=== PATIENT | female | born 1940 | race Caucasian/White ===

== ENCOUNTER 2022-09-12 07:15 | Inpatient (IN) | payer MEDICARE, OTHER ==
[~2022-09-12] VITALS: Ht 160 cm; Wt 72.5 kg
[2022-09-12] MEDS ORDERED: NS IV 1000 ML 1,000 ML IV STA (07:37)
[2022-09-12] MEDS ORDERED: ONDANSETRON 4 MG/2 ML (SDV) Z0FRAN IVP STA (07:37)
--- NOTE | 2022-09-12 07:43 | ED Cough/URI ---
General Stated Complaint: SOB Source: patient Exam Limitations: no limitations History of Present Illness Date Seen by Provider: Sep 12, 2022 Time Seen by Provider: 07:18 Initial Comments 81 yo female presenting with complaints of "feeling like shit". She reports cough with shortness of breath, nausea and vomiting, increased flatulence, hot and cold flashes, and nasal congestion/drainage since yesterday. She denies any known ill contacts. She lives in the [facility] here in [place]. She is a smoker but has not been able to smoke since yesterday due to shortness of breath. She denies chest pain or abdominal pain, but says her abdomen is sore when she is vomiting. She has a history of hypertension and takes 2 blood pressure medicines for that and she has had bilateral mastectomy in the remote past. She follows with [facility] clinic and sees MOIZ Juan. She reports that she has had Covid Vaccines but did not get a flu shot this season, but did get one in 2020. Timing/Duration: yesterday, getting worse Severity/Quality: dry cough Prior Episodes/Possible Cause: no prior episodes Modifying Factors: Worse With Activity, Worse With Coughing Associated Symptoms: cough, fever/chills (subjective), headache, nasal congestion, nasal drainage, shortness of breath Allergies and Home Medications Allergies Coded Allergies: caffeine (Verified Allergy, Unknown, 09/12/22) ergotamine (Verified Allergy, Unknown, 09/12/22) Patient Home Medication List Home Medication List Reviewed: Yes Review of Systems Review of Systems Constitutional: see HPI EENTM: see HPI Respiratory: see HPI Cardiovascular: see HPI Gastrointestinal: see HPI Genitourinary: No dysuria, No frequency Musculoskeletal: no symptoms reported Skin: No rash Psychiatric/Neurological: See HPI Hematologic/Lymphatic: No Symptoms Reported Past Aphjiii-Bnhtck-Knlzgs Hx Patient Social History Tobacco Use?: Yes Tobacco type used: Cigarettes Smoking Status: Current Everyday Smoker Use of E-Cig and/or Vaping dev: No Substance use?: No Past Medical History Surgery/Hospitalization HX: Bilateral mastectomy, Hypertension, High cholesterol, Depression, Tobacco abuse, Osteoarthritis Surgeries: Yes Breast (bilateral mastectomy) Cardiac: Yes High Cholesterol, Hypertension Neurological: No Genitourinary: No Gastrointestinal: No Musculoskeletal: Yes Arthritis Endocrine: No HEENT: No Cancer: Yes Breast Did You Recieve Any Treatments: Yes What Type of Treatment Did You: Surgical Intervention Psychosocial: Yes Depression Physical Exam Vital Signs - First Documented 09/12/22 09/12/22 07:22 07:32 Temp 36.8 Pulse 75 Resp 18 B/P (MAP) 165/67 (99) Pulse Ox 90 O2 Delivery Room Air O2 Flow Rate 2.00 FiO2 95 Capillary Refill : Height: '" Weight: lbs. oz. 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, alert, oriented x 3 Skin: normal color, warm/dry Focused Exam Lactate Level 09/12/22 07:35: Lactic Acid Level 0.95 Lactic Acid Level Laboratory Tests Test 09/12/22 07:35 Lactic Acid Level 0.95 MMOL/L (0.50-2.00) Progress/Results/Core Measures Suspected Sepsis SIRS Temperature: Pulse: Respiratory Rate: Laboratory Tests 09/12/22 07:35: White Blood Count 5.9 Blood Pressure / Mean: 09/12/22 07:35: Lactic Acid Level 0.95 Laboratory Tests 09/12/22 07:35: Creatinine 0.57L, Platelet Count 160, Total Bilirubin 0.3 Results/Orders Lab Results Laboratory Tests Test 09/12/22 07:34 09/12/22 07:35 09/12/22 09:17 Range/Units Influenza Type A (RT-PCR) Not Detected Not Detecte Influenza Type B (RT-PCR) Not Detected Not Detecte SARS-CoV-2 RNA (RT-PCR) Detected H Not Detecte White Blood Count 5.9 4.3-11.0 10^3/uL Red Blood Count 3.98 3.80-5.11 10^6/uL Hemoglobin 12.3 11.5-16.0 g/dL Hematocrit 36 35-52 % Mean Corpuscular Volume 92 80-99 fL Mean Corpuscular Hemoglobin 31 25-34 pg Mean Corpuscular Hemoglobin Concent 34 32-36 g/dL Red Cell Distribution Width 13.6 10.0-14.5 % Platelet Count 160 130-400 10^3/uL Mean Platelet Volume 10.3 9.0-12.2 fL Immature Granulocyte % (Auto) 0 % Neutrophils (%) (Auto) 72 42-75 % Lymphocytes (%) (Auto) 11 L 12-44 % Monocytes (%) (Auto) 13 H 0-12 % Eosinophils (%) (Auto) 3 0-10 % Basophils (%) (Auto) 1 0-10 % Neutrophils # (Auto) 4.2 1.8-7.8 10^3/uL Lymphocytes # (Auto) 0.7 L 1.0-4.0 10^3/uL Monocytes # (Auto) 0.8 0.0-1.0 10^3/uL Eosinophils # (Auto) 0.2 0.0-0.3 10^3/uL Basophils # (Auto) 0.1 0.0-0.1 10^3/uL Immature Granulocyte # (Auto) 0.0 0.0-0.1 10^3/uL Sodium Level 134 L 135-145 MMOL/L Potassium Level 4.0 3.6-5.0 MMOL/L Chloride Level 100 98-107 MMOL/L Carbon Dioxide Level 21 21-32 MMOL/L Anion Gap 13 5-14 MMOL/L Blood Urea Nitrogen 9 7-18 MG/DL Creatinine 0.57 L 0.60-1.30 MG/DL Estimat Glomerular Filtration Rate 92 BUN/Creatinine Ratio 16 Glucose Level 119 H 70-105 MG/DL Lactic Acid Level 0.95 0.50-2.00 MMOL/L Calcium Level 8.8 8.5-10.1 MG/DL Corrected Calcium 9.0 8.5-10.1 MG/DL Magnesium Level 2.0 1.6-2.4 MG/DL Total Bilirubin 0.3 0.1-1.0 MG/DL Aspartate Amino Transf (AST/SGOT) 18 5-34 U/L Alanine Aminotransferase (ALT/SGPT) 9 0-55 U/L Alkaline Phosphatase 80 40-136 U/L C-Reactive Protein 2.83 H <0.50 MG/DL Total Protein 7.5 6.4-8.2 GM/DL Albumin 3.8 3.2-4.5 GM/DL My Orders Orders - OLI BARTON MD Cbc With Automated Diff (09/12/22 07:34) Comprehensive Metabolic Panel (09/12/22 07:34) Blood Culture (09/12/22 07:34) Chest 1 View Ap/Pa Only (09/12/22 07:34) Albuterol/Ipra Inhalation Soln (Duoneb I (09/12/22 07:45) Magnesium (09/12/22 07:34) Ekg Tracing (09/12/22 07:34) O2 (09/12/22 07:34) Ed Iv/Invasive Line Start (09/12/22 07:34) Sputum Culture (09/12/22 07:34) Monitor-Rhythm Ecg Trace Only (09/12/22 07:34) Crp Fs (09/12/22 07:34) Lactic Acid Analyzer (09/12/22 07:34) Svn Small Volume Nebulizer (09/12/22 07:34) Covid 19 Inhouse Test (09/12/22 07:36) Influenza A And B By Pcr (09/12/22 07:36) Isolation Central Supply Req (09/12/22 07:36) Ua Culture If Indicated (09/12/22 07:36) Ns Iv 1000 Ml (Sodium Chloride 0.9%) (09/12/22 07:37) Ondansetron Injection (Zofran Injectio (09/12/22 07:37) Ketorolac Injection (Toradol Injection) (09/12/22 07:55) Albuterol Inhaler (Albuterol) (09/12/22 08:15) Nursing Communication (Order) (09/12/22 08:08) Dexamethasone Injection (Decadron Inje (09/12/22 08:08) Ceftriaxone 1 Gm Pre-Mix (Rocephin 1 Gm (09/12/22 08:08) Azithromycin Tablet (Zithromax Tablet) (09/12/22 08:08) Ed Admission (Communication) (09/12/22 08:34) Medications Given in ED Current Medications Medications Dose Ordered Sig/Francine Route Start Time Stop Time Status Last Admin Dose Admin Albuterol Sulfate 4 PUFFS RTQ4HR PRN IH 09/12/22 08:15 09/12/22 08:25 8.5 GM Albuterol/ Ipratropium 3 ml ONCE ONCE INH 09/12/22 07:45 09/12/22 07:46 DC 09/12/22 08:03 3 ML Vital Signs/I&O 09/12/22 09/12/22 09/12/22 07:22 07:32 07:41 Temp 36.8 36.8 Pulse 75 75 Resp 18 18 B/P (MAP) 165/67 (99) 165/67 Pulse Ox 90 95 O2 Delivery Room Air Nasal Cannula Nasal Cannula O2 Flow Rate 2.00 FiO2 95 Capillary Refill : Progress Note #1: Progress Note Potential diagnosis of pneumonia, COVID, influenza, heart failure, myocardial infarction, viral syndrome, COPD exacerbation. Obtain peripheral IV access and send labs for complete blood count, comprehensive metabolic profile, blood cultures, lactic acid, CRP, nasal swab for COVID and influenza. Urinalysis to look at her hydration as well as looking for infection. Electrocardiogram to evaluate her heart rate and rhythm and looking for signs of ischemia or arrhythmia. Sputum culture if she coughs up any phlegm or mucus. Single view chest x-ray to evaluate her lungs looking for pneumonia or infiltrate, mass, effusion, cardiomegaly. Administer normal saline 1 L IV fluid bolus for hydration, Zofran 4 mg IV for nausea and vomiting, DuoNeb breathing treatment for cough and shortness of breath. Placed on supplemental oxygen to help keep her sats above 91%. Initially her oxygen saturations were fluctuating between 89 to 92% on room air. Progress Note #2: Time: 07:56 Progress Note Patient complained to nurses that she has a headache and would like something for that but states she can not take Tylenol because she has a hiatal hernia. On my personal interpretation of her 1 view chest xray she has right lower lobe infiltrate. Placed patient on cardiac telemetry and on my initial interpretation she has sinus rhythm with rate in the 60s. My interpretation of her electrocardiogram is that she has a sinus rhythm with first degree AV block and a rate of 70 beats per minute without ST elevation or acute ischemic changes. Will order Toradol 15 mg IV for her complaint of headache. [id number] I reviewed radiologist report that said she had bibasilar opacities felt to be atelectasis rather than infection. On my interpretation with her clinical presentation and physical exam I feel that she has more of a pneumonia in the RLL. Will plan to proceed with antibiotics for possible bacterial infection. 0807 Lab called to inform us that she is positive for Covid. 0825 complete blood count shows her white blood cell count is not elevated at 5.9. Her comprehensive metabolic profile did not show acute significant abnormality on her electrolytes to account for her shortness of breath. Her lactic acid was not elevated at 0.95 to help go against sepsis. Her CRP was elevated which would go along with inflammatory process with her COVID infection. Will check with the hospitalist covering for [facility] about admission to the hospital since she did have hypoxia down to 86% on room air after she received a DuoNeb breathing treatment. With her having hypoxia in addition to COVID and not eating and drinking well she will benefit from admit and supplemental oxygen. Progress Note #3: Time: 08:28 Progress Note D/w Dr. Patel, educational therapist hospitalist for [facility] inpatient service. Advised her of the patient's presentation and vital signs with her dropping to 86% on room air. Blood count was ok and her lactic acid was not elevated for sepsis. Chest xray with concern for pneumonia along with her Covid infection. She agreed to admit for her COVID infection with hypoxia and possible pneumonia. Will admit to m ed/surg floor and she will place queued orders for the patient. ECG Initial ECG Impression Date: Sep 12, 2022 Initial ECG Impression Time: 07:52 Initial ECG Rate: 70 Initial ECG Rhythm: Normal Sinus Initial ECG Impression: 1st Degree AV Block Initial ECG Comparisson: No Previous ECG Available Comment On my personal interpretation of her electrocardiogram she shows a normal sinus rhythm with first-degree AV block and a heart rate of 70 bpm. MN interval [address] elevation. QT interval 425 ms with a QTc interval 446 ms. There is no prior tracing available for comparison. Diagnostic Imaging Diagonstic Imaging: Xray Plain Films/CT/US/NM/MRI: chest Comments NAME: CHUY UREÑA [facility] REC#: [id number] PT STATUS: REG ER : 1940 PHYSICIAN: OLI BARTON MD ADMIT DATE: 09/12/22/ER FS Draft Date of Exam:09/12/22 CHEST 1 VIEW AP/PA ONLY INDICATION: Cough or shortness of breath. There is flattening of the diaphragms and symmetrical hyperexpansion of the lungs bilaterally. Heart size is upper limits and there is borderline central vascular congestion but no convincing evidence for pulmonary edema. Very mild bibasilar patchy opacities are favored to reflect partial atelectasis. IMPRESSION: Air trapping likely basilar atelectasis with upper limits heart size and venous caliber but no overt failure pattern or pleural pathology. Dictated on workstation # [id number] Dict: 09/12/22 0758 Trans: 09/12/22 0800 [facility] [id number] Interpreted by: JAQUELINE BOYKIN Electronically signed by: Reviewed: Reviewed by Me (I reviewed radiologist report at 0804 ) Departure Communication (Admissions) Time/Spoke to Admitting Phy: 08:28 D/w Dr. Patel, educational therapist hospitalist for [facility] inpatient service. Advised her of the patient's presentation and vital signs with her dropping to 86% on room air. Blood count was ok and her lactic acid was not elevated for sepsis. Chest xray with concern for pneumonia along with her Covid infection. She agreed to admit for her COVID infection with hypoxia and possible pneumonia. Will admit to med/surg floor and she will place queued orders for the patient. Impression Primary Impression: COVID-19 virus infection Additional Impressions: Shortness of breath Upper respiratory infection with cough and congestion Pneumonia of right lower lobe due to infectious organism Acute viral syndrome Disposition: 30 STILL A PATIENT Condition: Stable Admissions Decision to Admit Reason: Admit from ER (General) Decision to Admit/Date: Sep 12, 2022 Time/Decision to Admit Time: 08:28 Departure-Patient Inst. Referrals: BASIA JUAN APRN (PCP) Primary Care Physician [facility] (Family) Primary Care Physician OLI BARTON MD Sep 12, 2022 07:43
[2022-09-12] MEDS ORDERED: RT-ALBUTEROL/IPRATROPIUM 3 ML (DUONEB) VIAL INH ONE (07:45)
[2022-09-12] MEDS ORDERED: KETOROLAC 15 MG/ML VIAL IVP STA (07:55)
[2022-09-12 07:57] LABS: BASOPHILS # (AUTO) 0.1 10^3/uL (0.0-0.1); BASOPHILS % (AUTO) 1 % (0-10); EOSINOPHILS # (AUTO) 0.2 10^3/uL (0.0-0.3); EOSINOPHILS % (AUTO) 3 % (0-10); HEMATOCRIT 36 % (35-52); HEMOGLOBIN 12.3 g/dL (11.5-16.0); LYMPHOCYTES # (AUTO) 0.7 10^3/uL (1.0-4.0); LYMPHOCYTES % (AUTO) 11 % (12-44); MEAN CORPUSCULAR HEMOGLOBIN 31 pg (25-34); MEAN CORPUSCULAR HGB CONC 34 g/dL (32-36); MEAN CORPUSCULAR VOLUME 92 fL (80-99); MEAN PLATELET VOLUME 10.3 fL (9.0-12.2); MONOCYTES # (AUTO) 0.8 10^3/uL (0.0-1.0); MONOCYTES % (AUTO) 13 % (0-12); NEUTROPHILS # (AUTO) 4.2 10^3/uL (1.8-7.8); NEUTROPHILS % (AUTO) 72 % (42-75); PLATELET COUNT 160 10^3/uL (130-400); WHITE BLOOD COUNT 5.9 10^3/uL (4.3-11.0)
--- NOTE | 2022-09-12 08:01 | Diagnostic Imaging Report ---
INDICATION: Cough or shortness of breath. There is flattening of the diaphragms and symmetrical hyperexpansion of the lungs bilaterally. Heart size is upper limits and there is borderline central vascular congestion but no convincing evidence for pulmonary edema. Very mild bibasilar patchy opacities are favored to reflect partial atelectasis. IMPRESSION: Air trapping likely basilar atelectasis with upper limits heart size and venous caliber but no overt failure pattern or pleural pathology. Dictated by: Dictated on workstation # [id number]
[2022-09-12] MEDS ORDERED: cefTRIAXone 1 GM PRE-MIX 50 ML IV STA (08:08)
[2022-09-12] MEDS ORDERED: AZITHROMYCIN 250 MG TAB (ZITHROMAX) PO STA (08:08)
[2022-09-12] MEDS ORDERED: RT-ALBUTEROL HFA 8.5 GM INHALER IH PRN ×2 (08:15→12:30)
[2022-09-12 08:18] LABS: CREATININE SERUM 0.57 MG/DL (0.60-1.30)
[2022-09-12 08:19] LABS: ALBUMIN 3.8 GM/DL (3.2-4.5); BILIRUBIN,TOTAL 0.3 MG/DL (0.1-1.0); CALCIUM 8.8 MG/DL (8.5-10.1); TOTAL PROTEIN 7.5 GM/DL (6.4-8.2)
--- NOTE | 2022-09-12 09:03 | History & Physical ---
History of Present Illness HPI/Chief Complaint CC: Hypoxia from COVID HPI: This is an 81yoWF clinic patient of [facility] who presents to the 4th floor with complaints of dyspnea. Patient was found to have COVID in [facility] ER. Hypoxia due to COVID and AECOPD required hospital stay. She does smoke. She wants to go home soon. IV steroids required. She is UTD on COVID vaccines. Source: patient Exam Limitations: no limitations Date Seen 09/12/22 Time Seen by a Provider: 12:00 Attending Physician Ava Ivey Aprn PCP Admitting Physician: Attending Physician: Referring Physician Date of Admission Home Medications & Allergies Home Medications Reviewed patient Home Medication Reconciliation performed by pharmacy medication reconciliations natural resource technician and/or nursing. Patients Allergies have been reviewed. Allergies Allergies Coded Allergies caffeine (Verified Allergy, Unknown, 09/12/22) ergotamine (Verified Allergy, Unknown, 09/12/22) Past Brxafaa-Dowsrp-Lkaxrc Hx Past Med/Social Hx: Reviewed Nursing Past Med/Soc Hx, Reviewed and Corrections made Patient Social History Marrital Status: single Employed/Student: retired Alcohol Use: Denies Use Smoking Status: Current Everyday Smoker Recent Foreign Travel: No Contact w/other who traveled: No Recent Infectious Disease Expo: No Past Medical History Surgeries: Breast (bilateral mastectomy) Cardiac: High Cholesterol, Hypertension Musculoskeletal: Arthritis Cancer: Breast Did You Recieve Any Treatments: Yes What Type of Treatment Did You: Surgical Intervention Psychosocial: Depression Review of Systems Constitutional: see HPI, malaise, weakness EENTM: no symptoms reported Respiratory: dyspnea on exertion Cardiovascular: no symptoms reported Gastrointestinal: no symptoms reported Physical Exam Physical Exam Vital Signs Vital Signs - First Documented 09/12/22 09/12/22 07:22 07:32 Temp 36.8 Pulse 75 Resp 18 B/P (MAP) 165/67 (99) Pulse Ox 90 O2 Delivery Room Air O2 Flow Rate 2.00 FiO2 95 Capillary Refill : Less Than 3 Seconds Height, Weight, BMI Height: '" Weight: lbs. oz. kg; 28.00 BMI Method: General Appearance: No Apparent Distress, WD/WN, Chronically ill Eyes: Bilateral Eye Normal Inspection, Bilateral Eye PERRL HEENT: PERRL/EOMI, Normal ENT Inspection, Pharynx Normal Neck: Full Range of Motion, Normal Inspection, Non Tender, Supple, Carotid Bruit Respiratory: Chest Non Tender, No Accessory Muscle Use, No Respiratory Distress, Crackles, Decreased Breath Sounds, Wheezing Cardiovascular: Regular Rate, Rhythm, No Edema, No Gallop, No JVD, No Murmur, Normal Peripheral Pulses Gastrointestinal: Normal Bowel Sounds, No Organomegaly, No Pulsatile Mass, Non Tender, Soft Back: Normal Inspection, No CVA Tenderness, No Vertebral Tenderness Extremity: Normal Capillary Refill, Normal Inspection, Normal Range of Motion, Non Tender, No Calf Tenderness, No Pedal Edema Neurologic/Psychiatric: Alert, Oriented x3, No Motor/Sensory Deficits, Normal Mood/Affect Skin: Normal Color, Warm/Dry Lymphatic: No Adenopathy Results Results/Procedures Labs Laboratory Tests 09/12/22 07:35 Patient resulted labs reviewed. Assessment/Plan Admission Diagnosis Assessment: Acute hypoxic respiratory failure COVID Smoker HTN HLP PNA Plan: IV abx IV steroids O2 Home meds Admission Status: Inpatient Order (span 2 midnights) Reason for Inpatient Admission: resp failure Diagnosis/Problems Diagnosis/Problems (1) COVID-19 virus infection Status: Acute (2) Pneumonia of right lower lobe due to infectious organism Status: Acute (3) Hypoxia Status: Acute (4) Shortness of breath Status: Acute LEIGH ANN WALTERS DO Sep 12, 2022 09:03
[2022-09-12 09:24] LABS: BILIRUBIN,URINE NEGATIVE (NEGATIVE); CLARITY,URINE CLEAR; COLOR,URINE YELLOW; GLUCOSE, URINE (UA) NEGATIVE (NEGATIVE); KETONES,URINE NEGATIVE (NEGATIVE); LEUKOCYTE ESTERASE ,URINE NEGATIVE (NEGATIVE); NITRITE,URINE NEGATIVE (NEGATIVE); PH,URINE 6.5 (5-9); PROTEIN,URINE 1+ (NEGATIVE)
[2022-09-12 09:32] LABS: AMORPHOUS SEDIMENT,UR FEW AMOR URATES /LPF; BACTERIA,URINE MODERATE /HPF; RBC,URINE 0-2 /HPF
[2022-09-12] MEDS ORDERED: cloNIDine 0.1 MG (CATAPRES) TAB PO PRN (10:30)
[2022-09-12] MEDS ORDERED: ONDANSETRON 4 MG (ZOFRAN) ORAL DISSOLVE TAB PO PRN (10:30)
[2022-09-12] MEDS ORDERED: ANTACID SUSP 30 ML UDC (MYLANTA) PO PRN (10:30)
[2022-09-12] MEDS ORDERED: polyethylene glycoL POWDER 17 GM (MIRALAX) PACK PO PRN (10:30)
[2022-09-12] MEDS ORDERED: HYDROmorphone 2 MG/ML VIAL (DILAUDID) IV PRN (10:30)
[2022-09-12] MEDS ORDERED: BISACODYL 10 MG SUPP (DULCOLAX) PR PRN (10:30)
[2022-09-12] MEDS ORDERED: diphenhydrAMINE 25 MG TAB (BENADRYL) PO PRN (10:30)
[2022-09-12] MEDS ORDERED: ONDANSETRON 4 MG/2 ML (SDV) Z0FRAN IV PRN (10:30)
[2022-09-12] MEDS ORDERED: diphenhydrAMINE 50 MG/ML INJ (BENADRYL) IVP PRN (10:30)
[2022-09-12] MEDS ORDERED: MELATONIN 3 MG TABLET PO PRN (10:30)
[2022-09-12] MEDS ORDERED: ACETAMINOPHEN 325 MG TABLET PO PRN (10:30)
[2022-09-12] MEDS ORDERED: guaiFENesin SYRUP 100 MG/5 ML 10 ML (ROBITUSSIN SF) PO SCH (11:00)
[2022-09-12] MEDS ORDERED: AZITHROMYCIN INJECTION 500 MG in NS (IVPB) 250 ML IV ONE (11:00)
[2022-09-12 11:58] VITALS: BP 125/60
[2022-09-12 12:00] VITALS: BP 125/60
[2022-09-12] MEDS: inSUlin ASPART (NovoLOG) 1 UNIT/0.01 ML (CHARGE PER UNIT) SC SCH ×3 (12:19→21:34)
[2022-09-12] MEDS ORDERED: CATHETER FLUSH 10 ML SYR IV PRN (12:30)
[2022-09-12] MEDS: ENOXAPARIN 40 MG/0.4 ML (LOVENOX) SYR SC SCH (12:32)
[2022-09-12] MEDS ORDERED: guaiFENesin/CODEINE (ROBITUSSIN AC) 10ML UDC PO PRN (13:00)
[2022-09-12] MEDS: CATHETER FLUSH 10 ML SYR IV SCH ×2 (14:07→22:08)
[2022-09-12] MEDS: RT-ALBUTEROL HFA 8.5 GM INHALER IH SCH ×2 (15:30→22:15)
[2022-09-12 16:30] VITALS: BP 129/60
[2022-09-12 20:09] VITALS: BP 124/59
[2022-09-12] MEDS: DOCUSATE SODIUM 100 MG (COLACE) CAP PO SCH (22:05)
[2022-09-12 23:01] VITALS: BP 141/73
[2022-09-13] MEDS: RT-ALBUTEROL HFA 8.5 GM INHALER IH SCH ×2 (02:35→07:09)
[2022-09-13 03:23] VITALS: BP 110/54
[2022-09-13 05:33] LABS: BASOPHILS % (AUTO) 0 % (0-10); EOSINOPHILS % (AUTO) 0 % (0-10); HEMATOCRIT 35 % (35-52); HEMOGLOBIN 11.9 g/dL (11.5-16.0); LYMPHOCYTES # (AUTO) 0.8 10^3/uL (1.0-4.0); LYMPHOCYTES % (AUTO) 15 % (12-44); MEAN CORPUSCULAR HEMOGLOBIN 32 pg (25-34); MEAN CORPUSCULAR HGB CONC 34 g/dL (32-36); MEAN CORPUSCULAR VOLUME 93 fL (80-99); MEAN PLATELET VOLUME 10.5 fL (9.0-12.2); MONOCYTES # (AUTO) 0.9 10^3/uL (0.0-1.0); MONOCYTES % (AUTO) 17 % (0-12); NEUTROPHILS # (AUTO) 3.4 10^3/uL (1.8-7.8); NEUTROPHILS % (AUTO) 67 % (42-75); PLATELET COUNT 146 10^3/uL (130-400)
--- NOTE | 2022-09-13 05:49 | Progress Note ---
Subjective Date Seen by a Provider: Sep 13, 2022 Time Seen by a Provider: 11:00 Focused Exam Lactate Level 09/12/22 07:35: Lactic Acid Level 0.95 Objective Exam Last Set of Vital Signs Vital Signs Date Time Temp Pulse Resp B/P (MAP) Pulse Ox O2 Delivery O2 Flow Rate FiO2 09/13/22 03:23 36.3 57 18 110/54 (72) 98 Nasal Cannula 2.00 09/12/22 12:00 28 Capillary Refill : Less Than 3 Seconds I&O Intake and Output 09/13/22 00:00 Intake Total 450 ml Balance 450 ml Intake Oral 450 ml # Voids 5 Daily Weight Change No Results Lab Laboratory Tests 09/12/22 07:34: Influenza Type A (RT-PCR) Not Detected, Influenza Type B (RT-PCR) Not Detected, SARS-CoV-2 RNA (RT-PCR) DetectedH 09/12/22 07:35: White Blood Count 5.9, Red Blood Count 3.98, Hemoglobin 12.3, Hematocrit 36, Mean Corpuscular Volume 92, Mean Corpuscular Hemoglobin 31, Mean Corpuscular Hemoglobin Concent 34, Red Cell Distribution Width 13.6, Platelet Count 160, Mean Platelet Volume 10.3, Immature Granulocyte % (Auto) 0, Neutrophils (%) (Auto) 72, Lymphocytes (%) (Auto) 11L, Monocytes (%) (Auto) 13H, Eosinophils (%) (Auto) 3, Basophils (%) (Auto) 1, Neutrophils # (Auto) 4.2, Lymphocytes # (Auto) 0.7L, Monocytes # (Auto) 0.8, Eosinophils # (Auto) 0.2, Basophils # (Auto) 0.1, Immature Granulocyte # (Auto) 0.0, Sodium Level 134L, Potassium Level 4.0, Chloride Level 100, Carbon Dioxide Level 21, Anion Gap 13, Blood Urea Nitrogen 9, Creatinine 0.57L, Estimat Glomerular Filtration Rate 92, BUN/Creatinine Ratio 16, Glucose Level 119H, Lactic Acid Level 0.95, Calcium Level 8.8, Corrected Calcium 9.0, Magnesium Level 2.0, Total Bilirubin 0.3, Aspartate Amino Transf (AST/SGOT) 18, Alanine Aminotransferase (ALT/SGPT) 9, Alkaline Phosphatase 80, C-Reactive Protein 2.83H, Total Protein 7.5, Albumin 3.8 09/12/22 09:17: Urine Color YELLOW, Urine Clarity CLEAR, Urine pH 6.5, Urine Specific [employer] 1.020, Urine Protein 1+H, Urine Glucose (UA) NEGATIVE, Urine Ketones NEGATIVE, Urine Nitrite NEGATIVE, Urine Bilirubin NEGATIVE, Urine Urobilinogen 0.2, Urine Leukocyte Esterase NEGATIVE, Urine RBC (Auto) TRACE-IH, Urine RBC 0-2, Urine WBC 2-5, Urine Squamous Epithelial Cells 10-25H, Urine Crystals PRESENTH, Urine Amorphous Sediment FEW ROVERTO URATESH, Urine Bacteria MODERATEH, Urine Casts NONE, Urine Mucus MODERATEH, Urine Culture Indicated NO 09/12/22 11:57: Glucometer 137H 09/12/22 16:29: Glucometer 135H 09/13/22 05:17: White Blood Count 5.0, Red Blood Count 3.77L, Hemoglobin 11.9, Hematocrit 35, Mean Corpuscular Volume 93, Mean Corpuscular Hemoglobin 32, Mean Corpuscular Hemoglobin Concent 34, Red Cell Distribution Width 13.5, Platelet Count 146, Mean Platelet Volume 10.5, Immature Granulocyte % (Auto) 0, Neutrophils (%) (Auto) 67, Lymphocytes (%) (Auto) 15, Monocytes (%) (Auto) 17H, Eosinophils (%) (Auto) 0, Basophils (%) (Auto) 0, Neutrophils # (Auto) 3.4, Lymphocytes # (Auto) 0.8L, Monocytes # (Auto) 0.9, Eosinophils # (Auto) 0.0, Basophils # (Auto) 0.0, Immature Granulocyte # (Auto) 0.0 09/13/22 05:30: Glucometer 95 Diagnosis/Problems Diagnosis/Problems (1) COVID-19 virus infection Status: Acute (2) Pneumonia of right lower lobe due to infectious organism Status: Acute (3) Hypoxia Status: Acute (4) Shortness of breath Status: Acute LEIGH ANN WALTERS DO Sep 13, 2022 05:49
[2022-09-13] MEDS: inSUlin ASPART (NovoLOG) 1 UNIT/0.01 ML (CHARGE PER UNIT) SC SCH ×2 (05:50→11:17)
[2022-09-13 05:53] LABS: ALBUMIN 3.2 GM/DL (3.2-4.5); BILIRUBIN,TOTAL 0.2 MG/DL (0.1-1.0); CALCIUM 8.6 MG/DL (8.5-10.1); CREATININE SERUM 0.64 MG/DL (0.60-1.30); TOTAL PROTEIN 6.6 GM/DL (6.4-8.2)
[2022-09-13] MEDS: CATHETER FLUSH 10 ML SYR IV SCH (06:09)
[2022-09-13] MEDS ORDERED: cefTRIAXone 1 GM PRE-MIX 50 ML IV SCH (08:00)
[2022-09-13 08:21] VITALS: BP 133/62
[2022-09-13] MEDS ORDERED: AZITHROMYCIN 250 MG TAB (ZITHROMAX) PO SCH (09:00)
[2022-09-13] MEDS ORDERED: AMLO-251 PO (09:26)
[2022-09-13] MEDS ORDERED: CETI10TA4 PO (09:26)
[2022-09-13] MEDS ORDERED: NABU500T8 PO (09:26)
[2022-09-13] MEDS ORDERED: ESTR2TAB3 PO (09:26)
[2022-09-13] MEDS ORDERED: CITA10TA9 PO (09:26)
[2022-09-13] MEDS ORDERED: PROP80CA4 PO (09:26)
[2022-09-13] MEDS ORDERED: SIMV20TA26 PO (09:26)
[2022-09-13] MEDS ORDERED: FEXO180T84 PO (09:27)
[2022-09-13] MEDS: DOCUSATE SODIUM 100 MG (COLACE) CAP PO SCH (09:43)
[2022-09-13] MEDS: ENOXAPARIN 40 MG/0.4 ML (LOVENOX) SYR SC SCH (11:00)
[2022-09-13] MEDS ORDERED: AZIT250T12 PO (11:27)
[2022-09-13] MEDS ORDERED: CEFD300C3 PO (11:27)
--- NOTE | 2022-09-13 11:28 | Discharge Summary ---
Diagnosis/Chief Complaint Date of Admission Sep 12, 2022 at 10:15 Date of Discharge Discharge Date: Sep 13, 2022 Discharge Diagnosis Assessment: Acute hypoxic respiratory failure COVID Smoker HTN HLP PNA Plan: IV abx IV steroids O2 Home meds Discharge Summary Discharge Physical Examination Allergies: Coded Allergies: caffeine (Verified Allergy, Unknown, 09/12/22) ergotamine (Verified Allergy, Unknown, 09/12/22) Vitals & I&Os Vital Signs Date Time Temp Pulse Resp B/P (MAP) Pulse Ox O2 Delivery O2 Flow Rate FiO2 09/13/22 14:20 36.6 48 18 135/63 98 Room Air 0.00 93 General Appearance: Alert, Oriented X3, Cooperative Respiratory: Clear to Auscultation Cardiovascular: Regular Rate Psych/Mental Status: Mental Status NL Hospital Course Was the Problem List Reviewed?: Yes Overnight course after admitted for hypoxia with COVID and RLL PNA. She responded to abx and two doses of Decadron and was able to wean off O2 and was DC. Labs (last 24 hrs) Laboratory Tests 09/12/22 07:34: Influenza Type A (RT-PCR) Not Detected, Influenza Type B (RT-PCR) Not Detected, SARS-CoV-2 RNA (RT-PCR) DetectedH 09/12/22 07:35: White Blood Count 5.9, Red Blood Count 3.98, Hemoglobin 12.3, Hematocrit 36, Mean Corpuscular Volume 92, Mean Corpuscular Hemoglobin 31, Mean Corpuscular Hemoglobin Concent 34, Red Cell Distribution Width 13.6, Platelet Count 160, Mean Platelet Volume 10.3, Immature Granulocyte % (Auto) 0, Neutrophils (%) (Auto) 72, Lymphocytes (%) (Auto) 11L, Monocytes (%) (Auto) 13H, Eosinophils (%) (Auto) 3, Basophils (%) (Auto) 1, Neutrophils # (Auto) 4.2, Lymphocytes # (Auto) 0.7L, Monocytes # (Auto) 0.8, Eosinophils # (Auto) 0.2, Basophils # (Auto) 0.1, Immature Granulocyte # (Auto) 0.0, Sodium Level 134L, Potassium Level 4.0, Chloride Level 100, Carbon Dioxide Level 21, Anion Gap 13, Blood Urea Nitrogen 9, Creatinine 0.57L, Estimat Glomerular Filtration Rate 92, BUN/Creatinine Ratio 16, Glucose Level 119H, Lactic Acid Level 0.95, Calcium Level 8.8, Corrected Calcium 9.0, Magnesium Level 2.0, Total Bilirubin 0.3, Aspartate Amino Transf (AST/SGOT) 18, Alanine Aminotransferase (ALT/SGPT) 9, Alkaline Phosphatase 80, C-Reactive Protein 2.83H, Total Protein 7.5, Albumin 3.8 09/12/22 09:17: Urine Color YELLOW, Urine Clarity CLEAR, Urine pH 6.5, Urine Specific [place] 1.020, Urine Protein 1+H, Urine Glucose (UA) NEGATIVE, Urine Ketones NEGATIVE, Urine Nitrite NEGATIVE, Urine Bilirubin NEGATIVE, Urine Urobilinogen 0.2, Urine Leukocyte Esterase NEGATIVE, Urine RBC (Auto) TRACE-IH, Urine RBC 0-2, Urine WBC 2-5, Urine Squamous Epithelial Cells 10-25H, Urine Crystals PRESENTH, Urine Amorphous Sediment FEW ROVERTO URATESH, Urine Bacteria MODERATEH, Urine Casts NONE, Urine Mucus MODERATEH, Urine Culture Indicated NO 09/12/22 11:57: Glucometer 137H 09/12/22 16:29: Glucometer 135H 09/13/22 05:17: White Blood Count 5.0, Red Blood Count 3.77L, Hemoglobin 11.9, Hematocrit 35, Mean Corpuscular Volume 93, Mean Corpuscular Hemoglobin 32, Mean Corpuscular Hemoglobin Concent 34, Red Cell Distribution Width 13.5, Platelet Count 146, Mean Platelet Volume 10.5, Immature Granulocyte % (Auto) 0, Neutrophils (%) (Auto) 67, Lymphocytes (%) (Auto) 15, Monocytes (%) (Auto) 17H, Eosinophils (%) (Auto) 0, Basophils (%) (Auto) 0, Neutrophils # (Auto) 3.4, Lymphocytes # (Auto) 0.8L, Monocytes # (Auto) 0.9, Eosinophils # (Auto) 0.0, Basophils # (Auto) 0.0, Immature Granulocyte # (Auto) 0.0, Sodium Level 138, Potassium Level 4.0, Chloride Level 107, Carbon Dioxide Level 19L, Anion Gap 12, Blood Urea Nitrogen 14, Creatinine 0.64, Estimat Glomerular Filtration Rate 89, BUN/Creatinine Ratio 22, Glucose Level 110H, Calcium Level 8.6, Corrected Calcium 9.2, Total Bilirubin 0.2, Aspartate Amino Transf (AST/SGOT) 17, Alanine Aminotransferase (ALT/SGPT) 10, Alkaline Phosphatase 64, Total Protein 6.6, Albumin 3.2 09/13/22 05:30: Glucometer 95 09/13/22 10:54: Glucometer 96 Microbiology 09/12/22 Gram Stain - Final, Resulted 09/12/22 Sputum Culture, Resulted Pending 09/12/22 Blood Culture - Preliminary, Resulted No growth Pending Labs Microbiology Date/Time Source Procedure Growth Status 09/12/22 08:27 Sputum Expectorated Gram Stain - Final Resulted 09/12/22 08:27 Sputum Expectorated Sputum Culture Pending Resulted 09/12/22 07:42 Peripheral Lt Ac Blood Culture - Preliminary No growth Resulted 09/12/22 07:35 Peripheral Lt Ac Blood Culture - Preliminary No growth Resulted Laboratory Tests 09/12/22 07:34: Influenza Type A (RT-PCR) Not Detected, Influenza Type B (RT-PCR) Not Detected, SARS-CoV-2 RNA (RT-PCR) Detected 09/12/22 07:35: White Blood Count 5.9, Red Blood Count 3.98, Hemoglobin 12.3, Hematocrit 36, Mean Corpuscular Volume 92, Mean Corpuscular Hemoglobin 31, Mean Corpuscular Hemoglobin Concent 34, Red Cell Distribution Width 13.6, Platelet Count 160, Mean Platelet Volume 10.3, Immature Granulocyte % (Auto) 0, Neutrophils (%) (Auto) 72, Lymphocytes (%) (Auto) 11, Monocytes (%) (Auto) 13, Eosinophils (%) (Auto) 3, Basophils (%) (Auto) 1, Neutrophils # (Auto) 4.2, Lymphocytes # (Auto) 0.7, Monocytes # (Auto) 0.8, Eosinophils # (Auto) 0.2, Basophils # (Auto) 0.1, Immature Granulocyte # (Auto) 0.0, Sodium Level 134, Potassium Level 4.0, Chloride Level 100, Carbon Dioxide Level 21, Anion Gap 13, Blood Urea Nitrogen 9, Creatinine 0.57, Estimat Glomerular Filtration Rate 92, BUN/Creatinine Ratio 16, Glucose Level 119, Lactic Acid Level 0.95, Calcium Level 8.8, Corrected Calcium 9.0, Magnesium Level 2.0, Total Bilirubin 0.3, Aspartate Amino Transf (AST/SGOT) 18, Alanine Aminotransferase (ALT/SGPT) 9, Alkaline Phosphatase 80, C-Reactive Protein 2.83, Total Protein 7.5, Albumin 3.8 09/12/22 09:17: Urine Color YELLOW, Urine Clarity CLEAR, Urine pH 6.5, Urine Specific [place] 1.020, Urine Protein 1+, Urine Glucose (UA) NEGATIVE, Urine Ketones NEGATIVE, Urine Nitrite NEGATIVE, Urine Bilirubin NEGATIVE, Urine Urobilinogen 0.2, Urine Leukocyte Esterase NEGATIVE, Urine RBC (Auto) TRACE-I, Urine RBC 0-2, Urine WBC 2-5, Urine Squamous Epithelial Cells 10-25, Urine Crystals PRESENT, Urine Amorphous Sediment FEW ROVERTO URATES, Urine Bacteria MODERATE, Urine Casts NONE, Urine Mucus MODERATE, Urine Culture Indicated NO 09/12/22 11:57: Glucometer 137 09/12/22 16:29: Glucometer 135 09/13/22 05:17: White Blood Count 5.0, Red Blood Count 3.77, Hemoglobin 11.9, Hematocrit 35, Mean Corpuscular Volume 93, Mean Corpuscular Hemoglobin 32, Mean Corpuscular Hemoglobin Concent 34, Red Cell Distribution Width 13.5, Platelet Count 146, Mean Platelet Volume 10.5, Immature Granulocyte % (Auto) 0, Neutrophils (%) (Auto) 67, Lymphocytes (%) (Auto) 15, Monocytes (%) (Auto) 17, Eosinophils (%) (Auto) 0, Basophils (%) (Auto) 0, Neutrophils # (Auto) 3.4, Lymphocytes # (Auto) 0.8, Monocytes # (Auto) 0.9, Eosinophils # (Auto) 0.0, Basophils # (Auto) 0.0, Immature Granulocyte # (Auto) 0.0, Sodium Level 138, Potassium Level 4.0, Chloride Level 107, Carbon Dioxide Level 19, Anion Gap 12, Blood Urea Nitrogen 14, Creatinine 0.64, Estimat Glomerular Filtration Rate 89, BUN/Creatinine Ratio 22, Glucose Level 110, Calcium Level 8.6, Corrected Calcium 9.2, Total Bilirubin 0.2, Aspartate Amino Transf (AST/SGOT) 17, Alanine Aminotransferase (ALT/SGPT) 10, Alkaline Phosphatase 64, Total Protein 6.6, Albumin 3.2 09/13/22 05:30: Glucometer 95 09/13/22 10:54: Glucometer 96 Discharge Home Medications: Active Scripts Active Azithromycin 250 Mg Tablet 250 Mg PO DAILY Cefdinir 300 Mg Capsule 300 Mg PO BID Reported Mili Allergy (Fexofenadine HCl) 180 Mg Tablet 180 Mg PO DAILY Amlodipine Besylate 10 Mg Tablet 10 Mg PO DAILY Citalopram HBr (Citalopram Hydrobromide) 10 Mg Tablet 10 Mg PO DAILY Simvastatin 20 Mg Tablet 20 Mg PO HS Nabumetone 500 Mg Tablet 500 Mg PO BID Propranolol HCl ER (Propranolol HCl) 80 Mg Cap.sa.24h 80 Mg PO DAILY Estradiol Tablet (Estradiol) 2 Mg Tablet 2 Mg PO DAILY Instructions to patient/family Please see electronic discharge instructions given to patient. Diagnosis/Problems Diagnosis/Problems (1) COVID-19 virus infection Status: Acute (2) Pneumonia of right lower lobe due to infectious organism Status: Acute (3) Hypoxia Status: Acute (4) Shortness of breath Status: Acute LEIGH ANN WALTERS DO Sep 13, 2022 11:28
[2022-09-13 11:41] VITALS: BP 135/63
[2022-09-13 14:20] VITALS: BP 135/63
== END 2022-09-13 14:15 | disposition home or self-care (01) | DRG 177 ==
LOC: ER FS 07:21 → 4TH 10:15
PROVIDERS: ADMIT Internal Medicine; ATTEND Internal Medicine
DX: U07.1 COVID-19 (principal); J12.82 Pneumonia due to coronavirus disease 2019; J96.01 Acute respiratory failure with hypoxia; J44.0 Chronic obstructive pulmonary disease with (acute) lower respiratory infection; J44.1 Chronic obstructive pulmonary disease with (acute) exacerbation; I10 Essential (primary) hypertension; E78.00 Pure hypercholesterolemia, unspecified; M19.90 Unspecified osteoarthritis, unspecified site; F32.A Depression, unspecified; F17.200 Nicotine dependence, unspecified, uncomplicated; Z85.3 Personal history of malignant neoplasm of breast; Z79.899 Other long term (current) drug therapy
CPT/HCPCS: 36415; 71045; 80053; 81000; 82947; 83605; 83735; 85025; 86141; 87040; 87070; 87205; 87636; 93005; 93041; 94640; 94760; 94761

== ENCOUNTER 2022-09-14 07:04 | Inpatient (IN) | payer MEDICARE, OTHER ==
[~2022-09-14] VITALS: Ht 162.5 cm; Wt 70.3 kg
[~2022-09-14 07:04] MED LIST: AMLO-251 PO; AZIT250T12 PO; CEFD300C3 PO; CETI10TA4 PO; CITA10TA9 PO; ESTR2TAB3 PO; FEXO180T84 PO; NABU500T8 PO; PROP80CA4 PO; SIMV20TA26 PO
[2022-09-14] MEDS ORDERED: NS IV 1000 ML 1,000 ML IV SCH (07:15)
[2022-09-14] MEDS ORDERED: methylPREDNISolone 125 MG (Solu-MEDROL) VIAL IVP ONE (07:15)
[2022-09-14 07:20] LABS: BASOPHILS % (AUTO) 1 % (0-10); EOSINOPHILS # (AUTO) 0.1 10^3/uL (0.0-0.3); EOSINOPHILS % (AUTO) 1 % (0-10); HEMATOCRIT 37 % (35-52); HEMOGLOBIN 12.3 g/dL (11.5-16.0); LYMPHOCYTES # (AUTO) 0.6 10^3/uL (1.0-4.0); LYMPHOCYTES % (AUTO) 10 % (12-44); MEAN CORPUSCULAR HEMOGLOBIN 31 pg (25-34); MEAN CORPUSCULAR HGB CONC 34 g/dL (32-36); MEAN CORPUSCULAR VOLUME 92 fL (80-99); MEAN PLATELET VOLUME 10.4 fL (9.0-12.2); MONOCYTES # (AUTO) 0.7 10^3/uL (0.0-1.0); MONOCYTES % (AUTO) 11 % (0-12); NEUTROPHILS # (AUTO) 4.8 10^3/uL (1.8-7.8); NEUTROPHILS % (AUTO) 77 % (42-75); PLATELET COUNT 165 10^3/uL (130-400); WHITE BLOOD COUNT 6.2 10^3/uL (4.3-11.0)
[2022-09-14] MEDS: RT-ALBUTEROL HFA 8.5 GM INHALER IH PRN ×2 (07:31→07:43)
[2022-09-14 07:40] LABS: INR 0.9 (0.8-1.4); PROTHROMBIN TIME PATIENT 12.3 SEC (12.2-14.7)
[2022-09-14 07:41] LABS: ALKALINE PHOSPHATASE 70 U/L (40-136); BILIRUBIN,TOTAL 0.3 MG/DL (0.1-1.0); BUN/CREATININE RATIO 22; CALCIUM 8.6 MG/DL (8.5-10.1); CARBON DIOXIDE 24 MMOL/L (21-32); CHLORIDE 98 MMOL/L (98-107); CREATININE SERUM 0.58 MG/DL (0.60-1.30); GFR ESTIMATED 91; GLUCOSE 103 MG/DL (70-105); POTASSIUM 3.9 MMOL/L (3.6-5.0); SODIUM 133 MMOL/L (135-145)
[2022-09-14 07:42] LABS: ALANINE AMINOTRANSFERASE 11 U/L (0-55); ALBUMIN 3.7 GM/DL (3.2-4.5); TOTAL PROTEIN 7.2 GM/DL (6.4-8.2)
[2022-09-14] MEDS ORDERED: FUROSEMIDE 40 MG/4 ML INJ (LASIX) IVP ONE (08:00)
--- NOTE | 2022-09-14 08:18 | Diagnostic Imaging Report ---
INDICATION: Shortness of breath, pneumonia. Frontal chest obtained at 7:45 a.m. and compared to 09/12/2022. The heart is mildly enlarged. There are interstitial infiltrates with some patchy alveolar infiltrate in the lung bases. There is no pneumothorax or pleural fluid IMPRESSION: Diffuse interstitial infiltrates with some patchy alveolar infiltrate in both lung bases. No pneumothorax or pleural fluid. Dictated by: Dictated on workstation # [id number]
[2022-09-14] MEDS ORDERED: NS 100 ML (IVPB) BAG IV ONE (08:45)
[2022-09-14] MEDS ORDERED: HOLD METFORMIN - RECEIVED CONTRAST 20 ML VIAL IV SCH (08:45)
[2022-09-14] MEDS ORDERED: IOHEXOL 350 MG/ML 100 ML (OMNIPAQUE 350) VIAL IV ONE (08:45)
--- NOTE | 2022-09-14 08:58 | Diagnostic Imaging Report ---
PROCEDURE: CT angiography of the chest with contrast. TECHNIQUE: Multiple contiguous axial images were obtained through the chest after uneventful bolus administration of intravenous contrast. 3D reconstructed CTA MIP acquisitions were also performed. Auto Exposure Controls were utilized during the CT exam to meet ALARA standards for radiation dose reduction. INDICATION: Shortness of breath and history of COVID. FINDINGS: There is a thick-walled cavitary mass in the right lung base. While this could be a necrotic pneumonia, the possibility of neoplasm certainly cannot be excluded. There is cardiomegaly. There is prominent right hilar adenopathy. The thoracic aorta is normal in caliber and without evidence of dissection. There are no filling defects seen within the pulmonary arteries to suggest pulmonary embolism. There is no pneumothorax. There is some subcarinal adenopathy. There is pretracheal adenopathy. The right hilar node measures approximately 2.1 cm. The conglomerate of nodes in the subcarinal region measures approximately 2.4 cm. The pretracheal node measures approximately 2 cm. The visualized intra-abdominal structures are unremarkable apart from some prominence of the infrarenal aorta which measures up to 3.3 cm. This is incompletely visualized on this exam. IMPRESSION: Thick-walled cavitary mass in the right lung base. Again, while this could reflect a necrotic pneumonia, the possibility of neoplasm certainly cannot be excluded. Additionally, there is enlarged adenopathy in the right hilum, subcarinal region and pretracheal region. Cardiomegaly. No evidence of aortic aneurysm, dissection or pulmonary embolism. Small hiatal hernia. A 3.3 cm infrarenal abdominal aortic aneurysm. This is incompletely visualized on this exam as it is only seen on the final image. Recommend clinical correlation and follow up with either ultrasound or contrast-enhanced CT abdomen and pelvis. Dictated by: Dictated on workstation # [id number]
[2022-09-14] MEDS ORDERED: VANCOMYCIN INJECTION 1,000 MG in NS (IVPB) 250 ML IV ONE (09:15)
[2022-09-14] MEDS ORDERED: PIPERACILLIN SODIUM/TAZOBACTAM 4.5 GM in NS (IVPB) 100 ML IV ONE (09:15)
--- NOTE | 2022-09-14 09:26 | ED Respiratory ---
General Chief Complaint: COVID19 Suspect/Confirmed Stated Complaint: SOB Nursing Triage Note: Patient presents to the ED via EMS with c/o shortness of breath and diarrhea. Patient reports she was hospitalized from 09/12 to 09/13 with pneumonia and COVID. Reports increased shortness of breath since discharge. States she began having diarrhea after starting the prescribed antibiotics. EMS report patient's oxygen saturation readings in the upper 80s on room air. Saturation then improved to the mid 90s with the administration of 2L of oxgyen via nasal cannula. 18g IV in right wrist established by EMS prior to arrival. Patient denies fever, nausea, or vomiting. Source: patient Exam Limitations: no limitations History of Present Illness Date Seen by Provider: Sep 14, 2022 Time Seen by Provider: 07:05 Initial Comments Patient is an 81-year-old female discharged home yesterday from [facility] after being treated for COVID-related pneumonia who presents with complaints of increased shortness of breath and diarrhea patient was hospitalized for 2 days. Patient states since being discharged from the hospital yesterday she has had multiple episodes of watery diarrhea. On EMS arrival, the patient's O2 saturations were in the upper 80s and the patient was tachypneic. She is compliant with antibiotics upon discharge, but does not take any breathing treatments due to adverse symptoms related to albuterol. Patient denies fever chills, nausea vomiting or sweats. Denies abdominal pain. The patient is a lifelong smoker, but denies history of asthma or COPD. Timing/Duration: yesterday Severity: moderate Prior Episodes/Possible Cause: other Modifying Factors: Improves With Other Associated Symptoms: other Allergies and Home Medications Allergies Coded Allergies: caffeine (Verified Allergy, Unknown, 09/12/22) ergotamine (Verified Allergy, Unknown, 09/12/22) albuterol (Verified Adverse Reaction, Mild, headache, 09/14/22) ipratropium (Verified Adverse Reaction, Mild, headache, 09/14/22) Patient Home Medication List Home Medication List Reviewed: Yes Amlodipine Besylate (Amlodipine Besylate) 10 Mg Tablet, 10 MG PO DAILY, (Reported) Entered as Reported by: ANNY MEYER on 09/13/22 0926 Azithromycin (Azithromycin) 250 Mg Tablet, 250 MG PO DAILY Prescribed by: LEIGH ANN WALTERS on 09/13/22 1127 Cefdinir (Cefdinir) 300 Mg Capsule, 300 MG PO BID Prescribed by: LEIGH ANN WALTERS on 09/13/22 1127 Citalopram Hydrobromide (Citalopram HBr) 10 Mg Tablet, 10 MG PO DAILY, (Reported) Entered as Reported by: ANNY MEYER on 09/13/22925 Estradiol (Estradiol Tablet) 2 Mg Tablet, 2 MG PO DAILY, (Reported) Entered as Reported by: ANNY MEYER on 09/13/22925 Fexofenadine HCl (Mili Allergy) 180 Mg Tablet, 180 MG PO DAILY, (Reported) Entered as Reported by: ANNY MEYER on 09/13/22926 Nabumetone (Nabumetone) 500 Mg Tablet, 500 MG PO BID, (Reported) Entered as Reported by: ANNY MEYER on 09/13/22925 Propranolol HCl (Propranolol HCl ER) 80 Mg Cap.sa.24h, 80 MG PO DAILY, (Reported) Entered as Reported by: ANNY MEYER on 09/13/22925 Simvastatin (Simvastatin) 20 Mg Tablet, 20 MG PO HS, (Reported) Entered as Reported by: ANNY MEYER on 09/13/22925 Review of Systems Review of Systems Constitutional: see HPI EENTM: no symptoms reported Respiratory: see HPI Cardiovascular: see HPI Gastrointestinal: see HPI Genitourinary: see HPI Musculoskeletal: see HPI Skin: see HPI Psychiatric/Neurological: See HPI Hematologic/Lymphatic: See HPI Immunological/Allergic: see HPI All Other Systems Reviewed Negative Unless Noted: No Past Sfhdnvv-Theweo-Pdzbxw Hx Patient Social History Tobacco Use?: Yes Tobacco type used: Cigarettes Smoking Status: Light Tobacco Smoker Use of E-Cig and/or Vaping dev: No Substance use?: No Alcohol Use?: No Pt feels they are or have been: No Past Medical History Surgery/Hospitalization HX: HYSTERECTOMY, BONE SPURS IN RIGHT SHOULDER SCRAPPED/REMOVED, DOUBLE MASTECTOMY; HTN; High cholesterol Surgeries: Yes Breast Cardiac: Yes High Cholesterol, Hypertension Neurological: No Genitourinary: No Gastrointestinal: No Musculoskeletal: Yes Arthritis Endocrine: No HEENT: No Cancer: Yes Breast Did You Recieve Any Treatments: Yes What Type of Treatment Did You: Surgical Intervention Psychosocial: Yes Depression Physical Exam Vital Signs - First Documented 09/14/22 07:08 Temp 37.5 Pulse 66 Resp 20 B/P (MAP) 151/77 (101) Pulse Ox 95 O2 Delivery Nasal Cannula O2 Flow Rate 2.00 Capillary Refill : Less Than 3 Seconds Height: '" Weight: lbs. oz. kg; 28.32 BMI Method: General Appearance: WD/WN, no apparent distress Eyes: Bilateral Eye Normal Inspection, Bilateral Eye PERRL, Bilateral Eye EOMI HEENT: PERRL/EOMI, normal ENT inspection Neck: non-tender, full range of motion Respiratory: no respiratory distress, decreased breath sounds, rales, rhonchi, wheezing Cardiovascular: regular rate, rhythm Gastrointestinal: non tender, soft Extremities: non-tender Neurologic/Psychiatric: videogame tester II-XII nml as tested, alert, normal mood/affect, oriented x 3 Focused Exam Sepsis Stage: Ruled Out Lactate Level 09/14/22 07:15: Lactic Acid Level 0.91 Lactic Acid Level Laboratory Tests Test 09/14/22 07:15 Lactic Acid Level 0.91 MMOL/L (0.50-2.00) Progress/Results/Core Measures Suspected Sepsis SIRS Temperature: Pulse: 66 Respiratory Rate: 20 Laboratory Tests 09/14/22 07:15: White Blood Count 6.2 Blood Pressure 151 /77 Mean: 101 09/14/22 07:15: Lactic Acid Level 0.91 Laboratory Tests 09/14/22 07:15: Creatinine 0.58L, INR Comment 0.9, Platelet Count 165, Total Bilirubin 0.3 Results/Orders Lab Results Laboratory Tests Test 09/14/22 07:15 Range/Units White Blood Count 6.2 4.3-11.0 10^3/uL Red Blood Count 3.98 3.80-5.11 10^6/uL Hemoglobin 12.3 11.5-16.0 g/dL Hematocrit 37 35-52 % Mean Corpuscular Volume 92 80-99 fL Mean Corpuscular Hemoglobin 31 25-34 pg Mean Corpuscular Hemoglobin Concent 34 32-36 g/dL Red Cell Distribution Width 13.4 10.0-14.5 % Platelet Count 165 130-400 10^3/uL Mean Platelet Volume 10.4 9.0-12.2 fL Immature Granulocyte % (Auto) 0 % Neutrophils (%) (Auto) 77 H 42-75 % Lymphocytes (%) (Auto) 10 L 12-44 % Monocytes (%) (Auto) 11 0-12 % Eosinophils (%) (Auto) 1 0-10 % Basophils (%) (Auto) 1 0-10 % Neutrophils # (Auto) 4.8 1.8-7.8 10^3/uL Lymphocytes # (Auto) 0.6 L 1.0-4.0 10^3/uL Monocytes # (Auto) 0.7 0.0-1.0 10^3/uL Eosinophils # (Auto) 0.1 0.0-0.3 10^3/uL Basophils # (Auto) 0.0 0.0-0.1 10^3/uL Immature Granulocyte # (Auto) 0.0 0.0-0.1 10^3/uL Prothrombin Time 12.3 12.2-14.7 SEC INR Comment 0.9 0.8-1.4 Activated Partial Thromboplast Time 30 24-35 SEC Sodium Level 133 L 135-145 MMOL/L Potassium Level 3.9 3.6-5.0 MMOL/L Chloride Level 98 98-107 MMOL/L Carbon Dioxide Level 24 21-32 MMOL/L Anion Gap 11 5-14 MMOL/L Blood Urea Nitrogen 13 7-18 MG/DL Creatinine 0.58 L 0.60-1.30 MG/DL Estimat Glomerular Filtration Rate 91 BUN/Creatinine Ratio 22 Glucose Level 103 70-105 MG/DL Lactic Acid Level 0.91 0.50-2.00 MMOL/L Calcium Level 8.6 8.5-10.1 MG/DL Corrected Calcium 8.8 8.5-10.1 MG/DL Total Bilirubin 0.3 0.1-1.0 MG/DL Aspartate Amino Transf (AST/SGOT) 19 5-34 U/L Alanine Aminotransferase (ALT/SGPT) 11 0-55 U/L Alkaline Phosphatase 70 40-136 U/L Troponin I < 0.30 <0.30 NG/ML Pro-B-Type Natriuretic Peptide 497.8 H <450.0 PG/ML Total Protein 7.2 6.4-8.2 GM/DL Albumin 3.7 3.2-4.5 GM/DL My Orders Orders - EDISON ROMERO DO Cbc With Automated Diff (09/14/22 07:05) Comprehensive Metabolic Panel (09/14/22 07:05) Blood Culture (09/14/22 07:05) Protime With Inr (09/14/22 07:05) Partial Thromboplastin Time (09/14/22 07:05) Chest 1 View Ap/Pa Only (09/14/22 07:05) Ed Iv/Invasive Line Start (09/14/22 07:05) Ed Iv/Invasive Line Start (09/14/22 07:05) Vital Signs Adult Sepsis Patie Q15M (09/14/22 07:05) O2 (09/14/22 07:05) Remove Rings In Anticipation O (09/14/22 07:05) Lactic Acid Analyzer (09/14/22 07:05) Ns Iv 1000 Ml (Sodium Chloride 0.9%) (09/14/22 07:15) Methylprednisolone Sod Succ (Solu-Medrol (09/14/22 07:15) Albuterol Inhaler (Albuterol) (09/14/22 07:15) Probnp Fs (09/14/22 07:05) Troponin I Fs (09/14/22 07:05) Ct Angio Chest W (R/O Pe) (09/14/22 07:08) Sputum Culture (09/14/22 07:29) Ct Angio Chest W (09/14/22 ) Furosemide Injection (Lasix Injection) (09/14/22 08:00) Vancomycin Injection (Vancomycin Injecti (09/14/22 09:15) Piperacillin Sodium/Tazobactam (Zosyn Vi (09/14/22 09:15) Ed Admission (Communication) (09/14/22 09:10) Medications Given in ED Current Medications Medications Dose Ordered Sig/Francine Route Start Time Stop Time Status Last Admin Dose Admin Furosemide 20 mg ONCE ONCE IVP 09/14/22 08:00 09/14/22 08:01 DC 09/14/22 08:41 20 MG Iohexol 100 ml ONCE ONCE IV 09/14/22 08:45 09/14/22 08:46 DC 09/14/22 08:41 80 ML Methylprednisolone Sodium Succinate 125 mg ONCE ONCE IVP 09/14/22 07:15 09/14/22 07:16 DC 09/14/22 07:32 125 MG Sodium Chloride 100 ml ONCE ONCE IV 09/14/22 08:45 09/14/22 08:46 DC 09/14/22 08:42 100 ML Vital Signs/I&O 09/14/22 09/14/22 09/14/22 07:08 07:08 07:21 Temp 37.5 Pulse 66 Resp 20 B/P (MAP) 151/77 (101) Pulse Ox 95 95 O2 Delivery Nasal Cannula Nasal Cannula Nasal Cannula O2 Flow Rate 2.00 2.00 2.00 Capillary Refill : Less Than 3 Seconds Blood Pressure Mean: 101 Departure Communication (Admissions) Chest x-ray: Perihilar and basilar infiltrates. CTA chest: necrotic pneumonia versus pulmonary malignancy per radiologist. Patient with diarrhea related to recent antibiotics and shortness of breath related to underlying pulmonary disease and pneumonia with concern for possible lung cancer. IV vancomycin and Zosyn given. Solu-Medrol and albuterol HFA given with transient headache. Breathing improved with patient able to maintain O2 saturation greater than 92% on 2 L. Will admit to [facility] hospitalist service. Impression Primary Impression: Acute respiratory failure with hypoxia Additional Impressions: Necrotizing pneumonia Diarrhea Disposition: ADMITTED INPATIENT Condition: Stable Admissions Decision to Admit Reason: Admit from ER (General) Decision to Admit/Date: Sep 14, 2022 Time/Decision to Admit Time: 09:27 Transfer Method of Transfer: EMS Departure-Patient Inst. Referrals: BASIA JUAN APRN (PCP) Primary Care Physician [facility] (Family) Primary Care Physician EDISON ROMERO DO Sep 14, 2022 09:26
[2022-09-14] MEDS ORDERED: NICOTINE 21 MG (NICODERM) PATCH TD ONE (09:45)
[2022-09-14 11:50] VITALS: BP_SYST 129; BP_SYST 143; BP_DIAS 103; BP_DIAS 65
[2022-09-14] MEDS ORDERED: DIPHENOXYLATE/ATROPINE 2.5MG/0.025MG (LOMOTIL) TAB PO ONE (13:00)
[2022-09-14] MEDS: PIPERACILLIN SODIUM/TAZOBACTAM 4.5 GM in NS (IVPB) 100 ML IV SCH ×2 (14:22→22:35)
[2022-09-14] MEDS: ENOXAPARIN 40 MG/0.4 ML (LOVENOX) SYR SC SCH (14:22)
[2022-09-14 15:43] VITALS: BP 143/65
[2022-09-14] MEDS ORDERED: RT-LEVALBUTEROL (XOPENEX) 1.25 MG/3 ML NEB NON-FORMULARY INH PRN (16:00)
[2022-09-14 16:34] VITALS: BP 117/56
[2022-09-14 19:07] VITALS: BP 142/64
[2022-09-14] MEDS: RT-LEVALBUTEROL (XOPENEX) 1.25 MG/3 ML NEB NON-FORMULARY INH SCH (21:25)
[2022-09-14] MEDS: AtorvaSTATin TABLET 10 MG TABLET PO SCH (22:34)
[2022-09-14 23:45] VITALS: BP 141/68
[2022-09-15] MEDS: RT-LEVALBUTEROL (XOPENEX) 1.25 MG/3 ML NEB NON-FORMULARY INH SCH ×3 (02:29→21:32)
[2022-09-15 03:43] VITALS: BP 115/55
[2022-09-15] MEDS: PIPERACILLIN SODIUM/TAZOBACTAM 4.5 GM in NS (IVPB) 100 ML IV SCH (06:48)
[2022-09-15 07:40] VITALS: BP 144/66
--- NOTE | 2022-09-15 09:30 | History & Physical-Hospitalist ---
History of Present Illness HPI/Chief Complaint Patient is an 81-year-old female discharged home yesterday from [facility] after being treated for COVID-related pneumonia who presents with complaints of increased shortness of breath and diarrhea patient was hospitalized for 2 days. Patient states since being discharged from the hospital yesterday she has had multiple episodes of watery diarrhea. On EMS arrival, the patient's O2 saturations were in the upper 80s and the patient was tachypneic. She is compliant with antibiotics upon discharge, but does not take any breathing treatments due to adverse symptoms related to albuterol. Patient denies fever chills, nausea vomiting or sweats. Denies abdominal pain. The patient is a lifelong smoker, but denies history of asthma or COPD. Upon my arrival the patient was alert and oriented feeling better having had several loose stools for which she was C. difficile negative. She noted no blood in her stool denied any change in occasional night sweats that are much worse off of estrogen that she has had for 30 years and she requested that estrogen be continued otherwise she was concerned that may get quite worse. She has had no chest pain or cough and had been feeling well up until the onset of fatigue and diarrhea for which she was found to be COVID-positive. She takes care of herself at home and reports she had not been having any previous difficulty with any of her care needs no weight loss and no fatigue up until Friday. She stated that she was adamant about discharge and realizes that this is a mistake now in which she had remained in the hospital. She has had baseline cough no significant sputum production and no purulent sputum production. Date Seen 09/15/22 Time Seen by a Provider: 08:00 Attending Physician Ava Ivey Aprn PCP Admitting Physician: Papo August MD Attending Physician: Papo August MD Referring Physician Date of Admission Sep 14, 2022 at 11:35 Home Medications & Allergies Home Medications Reviewed patient Home Medication Reconciliation performed by pharmacy medication reconciliations mechanical assembly technician and/or nursing. Patients Allergies have been reviewed. Allergies Allergies Coded Allergies caffeine (Verified Allergy, Unknown, 09/14/22) ergotamine (Verified Allergy, Unknown, 09/14/22) albuterol (Verified Adverse Reaction, Mild, headache, 09/14/22) ipratropium (Verified Adverse Reaction, Mild, headache, 09/14/22) Past Rmpkbnk-Ekxepc-Edtjaw Hx Patient Social History Tobacco Use?: Yes Tobacco type used: Cigarettes Smoking Status: Current Everyday Smoker Use of E-Cig and/or Vaping dev: No Substance use?: No Alcohol Use?: No Pt feels they are or have been: No Immunizations Up To Date Date of Influenza Vaccine: Jun 10, 2022 Tetanus Booster (TDap): More Than 5 Years Hepatitis A: No Hepatitis B: No Current Status status: No Advance Directives: No Communicates: Verbally Primary Language: Luxembourgish Preferred Spoken Language: Luxembourgish Is interpretation needed?: No Sensory deficits: Vision impairment Implanted or Applied Medical D: None Past Medical History Surgeries: Breast High Cholesterol, Hypertension Arthritis Breast Did You Recieve Any Treatments: Yes What Type of Treatment Did You: Surgical Intervention Depression Review of Systems Constitutional: see HPI Physical Exam Physical Exam Vital Signs Vital Signs - First Documented 09/14/22 07:08 Temp 37.5 Pulse 66 Resp 20 B/P (MAP) 151/77 (101) Pulse Ox 95 O2 Delivery Nasal Cannula O2 Flow Rate 2.00 Capillary Refill : Less Than 3 Seconds Height, Weight, BMI Height: '" Weight: lbs. oz. kg; 26.62 BMI Method: General Appearance: No Apparent Distress Neck: Full Range of Motion, Normal Inspection, Non Tender Respiratory: No Accessory Muscle Use, No Respiratory Distress, Other (Bibasilar rales noted while her pulmonary abnormalities on the right side of these are little more prominent on the left mid and upper lung barreto and anterior chest is clear and no wheezing noted.) Cardiovascular: Regular Rate, Rhythm, No Edema, No Gallop, No JVD, No Murmur, Normal Peripheral Pulses Gastrointestinal: Normal Bowel Sounds, No Organomegaly, No Pulsatile Mass, Non Tender, Soft Extremity: Normal Inspection, Normal Range of Motion, Non Tender, No Calf Tenderness, No Pedal Edema Results Results/Procedures Labs Laboratory Tests 09/14/22 07:15 Patient resulted labs reviewed. Assessment/Plan Admission Diagnosis 1. While the patient was admitted with concerns for pneumonia with extreme weakness and diarrhea a thick walled cavitary mass with left hilar adenopathy and the smoker is far more likely to be lung cancer specifically squamous cell. I did obtain a procalcitonin level if this is normal I will discontinue antibiotics as it is only likely to exacerbate her diarrhea for which she is C. difficile negative. I did discuss my concerns about underlying lung cancer and the need for tissue. We discussed that radiology would be consulted in the morning and the issue here is how safest to get tissue if the radiologist feels that this can be done here via skinny needle then would proceed if not discuss would require transfer likely to [place] to see a die maintenance technician for bronchoscopy and endobronchial biopsy. 2. Recent COVID infection less than a week out suspect diarrhea may be related to this. 3. Mild hyponatremia likely due to diarrhea cannot rule out paraneoplastic process from lung cancer although probably a little less likely as hyponatremia is only mild continue saline IV. Admission Status: Inpatient Order (span 2 midnights) Reason for Inpatient Admission: See admission diagnosis PAPO AUGUST MD Sep 15, 2022 09:30
[2022-09-15] MEDS: PROPRANOLOL ER 80 MG CAP (INDERAL LA) PO SCH (10:01)
[2022-09-15] MEDS: amLODIPine 10 MG (NORVASC) TAB PO SCH (10:01)
[2022-09-15] MEDS: LORATADINE (CLARITIN) 10 MG TAB PO SCH (10:01)
[2022-09-15] MEDS: ESTRADIOL 1 MG TAB (ESTRACE) PO SCH (10:01)
[2022-09-15] MEDS: DIPHENOXYLATE/ATROPINE 2.5MG/0.025MG (LOMOTIL) TAB PO PRN ×2 (10:05→18:05)
[2022-09-15 11:59] VITALS: BP 147/67
[2022-09-15 15:50] VITALS: BP 136/70
[2022-09-15] MEDS: ENOXAPARIN 40 MG/0.4 ML (LOVENOX) SYR SC SCH (16:13)
[2022-09-15] MEDS ORDERED: ALPRAZolam 0.25 MG (XANAX) TAB ONE (18:08)
[2022-09-15] MEDS: ALPRAZolam 0.25 MG (XANAX) TAB PO PRN (18:09)
[2022-09-15 19:30] VITALS: BP 139/65
[2022-09-15] MEDS: AtorvaSTATin TABLET 10 MG TABLET PO SCH (21:25)
[2022-09-15 23:13] VITALS: BP 143/69
[2022-09-16] MEDS: RT-LEVALBUTEROL (XOPENEX) 1.25 MG/3 ML NEB NON-FORMULARY INH SCH ×4 (03:01→21:37)
[2022-09-16 03:08] VITALS: BP 164/72
[2022-09-16 06:06] LABS: BASOPHILS % (AUTO) 0 % (0-10); EOSINOPHILS # (AUTO) 0.2 10^3/uL (0.0-0.3); EOSINOPHILS % (AUTO) 3 % (0-10); HEMATOCRIT 37 % (35-52); HEMOGLOBIN 12.5 g/dL (11.5-16.0); LYMPHOCYTES # (AUTO) 0.9 10^3/uL (1.0-4.0); LYMPHOCYTES % (AUTO) 15 % (12-44); MEAN CORPUSCULAR HEMOGLOBIN 31 pg (25-34); MEAN CORPUSCULAR HGB CONC 34 g/dL (32-36); MEAN CORPUSCULAR VOLUME 92 fL (80-99); MEAN PLATELET VOLUME 10.8 fL (9.0-12.2); MONOCYTES # (AUTO) 0.5 10^3/uL (0.0-1.0); MONOCYTES % (AUTO) 9 % (0-12); NEUTROPHILS # (AUTO) 4.3 10^3/uL (1.8-7.8); NEUTROPHILS % (AUTO) 73 % (42-75); PLATELET COUNT 141 10^3/uL (130-400); WHITE BLOOD COUNT 5.9 10^3/uL (4.3-11.0)
[2022-09-16 06:37] LABS: ALBUMIN 3.4 GM/DL (3.2-4.5); BILIRUBIN,TOTAL 0.3 MG/DL (0.1-1.0); CALCIUM 8.4 MG/DL (8.5-10.1); CREATININE SERUM 0.64 MG/DL (0.60-1.30); POTASSIUM 3.3 MMOL/L (3.6-5.0); TOTAL PROTEIN 6.8 GM/DL (6.4-8.2)
[2022-09-16 08:01] VITALS: BP 133/61
[2022-09-16] MEDS: ESTRADIOL 1 MG TAB (ESTRACE) PO SCH (08:35)
[2022-09-16] MEDS: PROPRANOLOL ER 80 MG CAP (INDERAL LA) PO SCH (08:35)
[2022-09-16] MEDS: DIPHENOXYLATE/ATROPINE 2.5MG/0.025MG (LOMOTIL) TAB PO PRN ×2 (08:36→14:33)
[2022-09-16] MEDS: LORATADINE (CLARITIN) 10 MG TAB PO SCH (08:36)
[2022-09-16] MEDS: amLODIPine 10 MG (NORVASC) TAB PO SCH (08:36)
[2022-09-16] MEDS: ALPRAZolam 0.25 MG (XANAX) TAB PO PRN ×2 (08:46→22:42)
--- NOTE | 2022-09-16 10:15 | Progress Note - Hospitalist ---
Subjective HPI/CC On Admission Date Seen by Provider: Sep 16, 2022 Time Seen by Provider: 09:30 Patient is an 81-year-old female discharged home yesterday from [facility] after being treated for COVID-related pneumonia who presents with complaints of increased shortness of breath and diarrhea patient was hospitalized for 2 days. Patient states since being discharged from the hospital yesterday she has had multiple episodes of watery diarrhea. On EMS arrival, the patient's O2 saturations were in the upper 80s and the patient was tachypneic. She is compliant with antibiotics upon discharge, but does not take any breathing treatments due to adverse symptoms related to albuterol. Patient denies fever chills, nausea vomiting or sweats. Denies abdominal pain. The patient is a lifelong smoker, but denies history of asthma or COPD. Upon my arrival the patient was alert and oriented feeling better having had sev eral loose stools for which she was C. difficile negative. She noted no blood in her stool denied any change in occasional night sweats that are much worse off of estrogen that she has had for 30 years and she requested that estrogen be continued otherwise she was concerned that may get quite worse. She has had no chest pain or cough and had been feeling well up until the onset of fatigue and diarrhea for which she was found to be COVID-positive. She takes care of herself at home and reports she had not been having any previous difficulty with any of her care needs no weight loss and no fatigue up until Friday. She stated that she was adamant about discharge and realizes that this is a mistake now in which she had remained in the hospital. She has had baseline cough no significant sputum production and no purulent sputum production. Subjective/Events-last exam Overall improved CT scan guided biopsy to be completed Friday No pain reported Cough is present Weakness noted Review of Systems General: Fatigue, Malaise Pulmonary: Dyspnea, Cough Focused Exam Lactate Level 09/14/22 07:15: Lactic Acid Level 0.91 Objective Exam Vital Signs Vital Signs Date Time Temp Pulse Resp B/P (MAP) Pulse Ox O2 Delivery O2 Flow Rate FiO2 09/17/22 03:33 37.2 61 20 138/72 (94) 91 Nasal Cannula 5.00 Capillary Refill : Less Than 3 Seconds General Appearance: Anxious, Chronically ill Respiratory: No Accessory Muscle Use, No Respiratory Distress, Crackles, Decreased Breath Sounds Cardiovascular: Regular Rate, Rhythm Neurologic/Psychiatric: Alert, Oriented x3, No Motor/Sensory Deficits, Normal Mood/Affect Results/Procedures Lab Laboratory Tests 09/16/22 05:26 Patient resulted labs reviewed. Assessment/Plan Assessment and Plan Assess & Plan/Chief Complaint Assessment: Acute hypoxic respiratory failure COVID 8 days ago Smoker HTN HLP Lung mass Plan: CT guided biopsy Wed Monitor closely O2 LEIGH ANN WALTERS DO Sep 16, 2022 10:15
[2022-09-16 11:59] VITALS: BP 128/60
[2022-09-16] MEDS: ENOXAPARIN 40 MG/0.4 ML (LOVENOX) SYR SC SCH (14:34)
[2022-09-16 15:49] VITALS: BP 137/60
[2022-09-16 19:54] VITALS: BP 143/63
[2022-09-16] MEDS: AtorvaSTATin TABLET 10 MG TABLET PO SCH (20:55)
[2022-09-17 00:13] VITALS: BP 106/46
[2022-09-17] MEDS: RT-LEVALBUTEROL (XOPENEX) 1.25 MG/3 ML NEB NON-FORMULARY INH SCH ×4 (03:27→21:33)
[2022-09-17 03:33] VITALS: BP 138/72
--- NOTE | 2022-09-17 05:04 | Progress Note - Hospitalist ---
Subjective HPI/CC On Admission Date Seen by Provider: Sep 17, 2022 Time Seen by Provider: 09:00 Patient is an 81-year-old female discharged home yesterday from [facility] after being treated for COVID-related pneumonia who presents with complaints of increased shortness of breath and diarrhea patient was hospitalized for 2 days. Patient states since being discharged from the hospital yesterday she has had multiple episodes of watery diarrhea. On EMS arrival, the patient's O2 saturations were in the upper 80s and the patient was tachypneic. She is compliant with antibiotics upon discharge, but does not take any breathing treatments due to adverse symptoms related to albuterol. Patient denies fever chills, nausea vomiting or sweats. Denies abdominal pain. The patient is a lifelong smoker, but denies history of asthma or COPD. Upon my arrival the patient was alert and oriented feeling better having had sev eral loose stools for which she was C. difficile negative. She noted no blood in her stool denied any change in occasional night sweats that are much worse off of estrogen that she has had for 30 years and she requested that estrogen be continued otherwise she was concerned that may get quite worse. She has had no chest pain or cough and had been feeling well up until the onset of fatigue and diarrhea for which she was found to be COVID-positive. She takes care of herself at home and reports she had not been having any previous difficulty with any of her care needs no weight loss and no fatigue up until Friday. She stated that she was adamant about discharge and realizes that this is a mistake now in which she had remained in the hospital. She has had baseline cough no significant sputum production and no purulent sputum production. Subjective/Events-last exam CT guided biopsy to be performed tomorrow Cough is improved No other issues Loose stools improved Review of Systems General: Fatigue, Malaise Pulmonary: Dyspnea Focused Exam Lactate Level Objective Exam Vital Signs Vital Signs Date Time Temp Pulse Resp B/P (MAP) Pulse Ox O2 Delivery O2 Flow Rate FiO2 09/18/22 04:00 37.2 60 18 128/68 (88) 93 Nasal Cannula 5.00 Capillary Refill : Less Than 3 Seconds General Appearance: No Apparent Distress, WD/WN, Chronically ill Respiratory: No Accessory Muscle Use, No Respiratory Distress, Crackles, Decreased Breath Sounds Cardiovascular: Regular Rate, Rhythm Neurologic/Psychiatric: Alert, Oriented x3, No Motor/Sensory Deficits, Normal Mood/Affect Results/Procedures Lab Laboratory Tests 09/17/22 05:02 Patient resulted labs reviewed. Assessment/Plan Assessment and Plan Assess & Plan/Chief Complaint Assessment: Acute hypoxic respiratory failure COVID 8 days ago Smoker HTN HLP Lung mass Diarrhea improved Plan: CT guided biopsy tomorrow Monitor closely O2 LEIGH ANN WALTERS DO Sep 17, 2022 05:04
[2022-09-17 05:08] LABS: HEMATOCRIT 35 % (35-52); MEAN CORPUSCULAR VOLUME 92 fL (80-99)
[2022-09-17 05:10] LABS: BASOPHILS % (AUTO) 0 % (0-10); EOSINOPHILS # (AUTO) 0.2 10^3/uL (0.0-0.3); EOSINOPHILS % (AUTO) 3 % (0-10); HEMOGLOBIN 11.8 g/dL (11.5-16.0); LYMPHOCYTES # (AUTO) 1.2 10^3/uL (1.0-4.0); LYMPHOCYTES % (AUTO) 24 % (12-44); MEAN CORPUSCULAR HEMOGLOBIN 31 pg (25-34); MEAN CORPUSCULAR HGB CONC 34 g/dL (32-36); MEAN PLATELET VOLUME 10.8 fL (9.0-12.2); MONOCYTES # (AUTO) 0.6 10^3/uL (0.0-1.0); MONOCYTES % (AUTO) 11 % (0-12); NEUTROPHILS # (AUTO) 3.2 10^3/uL (1.8-7.8); NEUTROPHILS % (AUTO) 62 % (42-75); PLATELET COUNT 103 10^3/uL (130-400); WHITE BLOOD COUNT 5.2 10^3/uL (4.3-11.0)
[2022-09-17 05:45] LABS: ALBUMIN 3.1 GM/DL (3.2-4.5)
[2022-09-17 05:46] LABS: POTASSIUM 3.1 MMOL/L (3.6-5.0)
[2022-09-17 05:48] LABS: TOTAL PROTEIN 6.2 GM/DL (6.4-8.2)
[2022-09-17 05:50] LABS: BILIRUBIN,TOTAL 0.3 MG/DL (0.1-1.0)
[2022-09-17 05:51] LABS: CREATININE SERUM 0.67 MG/DL (0.60-1.30)
[2022-09-17 05:59] LABS: SMEAR SCAN COMMENT YES
[2022-09-17 07:42] VITALS: BP 140/76
[2022-09-17] MEDS: ESTRADIOL 1 MG TAB (ESTRACE) PO SCH (08:11)
[2022-09-17] MEDS: PROPRANOLOL ER 80 MG CAP (INDERAL LA) PO SCH (08:11)
[2022-09-17] MEDS: amLODIPine 10 MG (NORVASC) TAB PO SCH (08:12)
[2022-09-17] MEDS: LORATADINE (CLARITIN) 10 MG TAB PO SCH (08:12)
[2022-09-17] MEDS: DIPHENOXYLATE/ATROPINE 2.5MG/0.025MG (LOMOTIL) TAB PO PRN (08:14)
[2022-09-17] MEDS: KCL 20 MEQ TAB (K-DUR) PO SCH ×2 (09:51→19:51)
[2022-09-17 11:28] VITALS: BP 133/63
[2022-09-17] MEDS: ENOXAPARIN 40 MG/0.4 ML (LOVENOX) SYR SC SCH (14:15)
[2022-09-17 15:15] VITALS: BP 144/65
[2022-09-17 19:10] VITALS: BP 115/55
[2022-09-17] MEDS: ALPRAZolam 0.25 MG (XANAX) TAB PO PRN (19:51)
[2022-09-17] MEDS: AtorvaSTATin TABLET 10 MG TABLET PO SCH (19:51)
[2022-09-18] VITALS (17 sets, daily range): BP systolic 109–142; BP diastolic 43–76
[2022-09-18] MEDS: RT-LEVALBUTEROL (XOPENEX) 1.25 MG/3 ML NEB NON-FORMULARY INH SCH ×3 (03:16→15:17)
[2022-09-18 05:32] LABS: BASOPHILS % (AUTO) 0 % (0-10); MEAN CORPUSCULAR VOLUME 91 fL (80-99); PLATELET COUNT 100 10^3/uL (130-400)
[2022-09-18 05:34] LABS: EOSINOPHILS # (AUTO) 0.3 10^3/uL (0.0-0.3); EOSINOPHILS % (AUTO) 5 % (0-10); HEMATOCRIT 34 % (35-52); HEMOGLOBIN 11.5 g/dL (11.5-16.0); LYMPHOCYTES # (AUTO) 1.4 10^3/uL (1.0-4.0); LYMPHOCYTES % (AUTO) 27 % (12-44); MEAN CORPUSCULAR HEMOGLOBIN 31 pg (25-34); MEAN CORPUSCULAR HGB CONC 34 g/dL (32-36); MEAN PLATELET VOLUME 10.9 fL (9.0-12.2); MONOCYTES # (AUTO) 0.4 10^3/uL (0.0-1.0); MONOCYTES % (AUTO) 8 % (0-12); NEUTROPHILS # (AUTO) 3.2 10^3/uL (1.8-7.8); NEUTROPHILS % (AUTO) 60 % (42-75); WHITE BLOOD COUNT 5.3 10^3/uL (4.3-11.0)
[2022-09-18 05:47] LABS: INR 0.9 (0.8-1.4); PROTHROMBIN TIME PATIENT 12.9 SEC (12.2-14.7)
[2022-09-18 06:07] LABS: BILIRUBIN,TOTAL 0.3 MG/DL (0.1-1.0); CALCIUM 8.2 MG/DL (8.5-10.1); CREATININE SERUM 0.65 MG/DL (0.60-1.30); POTASSIUM 3.5 MMOL/L (3.6-5.0); TOTAL PROTEIN 6.1 GM/DL (6.4-8.2)
--- NOTE | 2022-09-18 07:16 | Progress Note - Hospitalist ---
Subjective HPI/CC On Admission Date Seen by Provider: Sep 18, 2022 Time Seen by Provider: 10:00 Patient is an 81-year-old female discharged home yesterday from [facility] after being treated for COVID-related pneumonia who presents with complaints of increased shortness of breath and diarrhea patient was hospitalized for 2 days. Patient states since being discharged from the hospital yesterday she has had multiple episodes of watery diarrhea. On EMS arrival, the patient's O2 saturations were in the upper 80s and the patient was tachypneic. She is compliant with antibiotics upon discharge, but does not take any breathing treatments due to adverse symptoms related to albuterol. Patient denies fever chills, nausea vomiting or sweats. Denies abdominal pain. The patient is a lifelong smoker, but denies history of asthma or COPD. Upon my arrival the patient was alert and oriented feeling better having had sev eral loose stools for which she was C. difficile negative. She noted no blood in her stool denied any change in occasional night sweats that are much worse off of estrogen that she has had for 30 years and she requested that estrogen be continued otherwise she was concerned that may get quite worse. She has had no chest pain or cough and had been feeling well up until the onset of fatigue and diarrhea for which she was found to be COVID-positive. She takes care of herself at home and reports she had not been having any previous difficulty with any of her care needs no weight loss and no fatigue up until Friday. She stated that she was adamant about discharge and realizes that this is a mistake now in which she had remained in the hospital. She has had baseline cough no significant sputum production and no purulent sputum production. Subjective/Events-last exam Awaiting CT guided lung mass biopsy Cough is improved No pain reported Wants DC soon Review of Systems General: Fatigue, Malaise Objective Exam Vital Signs Vital Signs Date Time Temp Pulse Resp B/P (MAP) Pulse Ox O2 Delivery O2 Flow Rate FiO2 09/18/22 23:58 36.3 65 16 126/58 (80) 92 OxyMask 5.00 5.00 Capillary Refill : Less Than 3 Seconds General Appearance: No Apparent Distress, WD/WN, Chronically ill Respiratory: No Accessory Muscle Use, No Respiratory Distress, Crackles Cardiovascular: Regular Rate, Rhythm Neurologic/Psychiatric: Alert, Oriented x3 Results/Procedures Lab Laboratory Tests 3/22/23 05:13 Patient resulted labs reviewed. Assessment/Plan Assessment and Plan Assess & Plan/Chief Complaint Assessment: Acute hypoxic respiratory failure COVID 8 days ago Smoker HTN HLP Lung mass Diarrhea improved Plan: CT guided biopsy today Monitor closely O2 LEIGH ANN WALTERS DO Sep 18, 2022 07:16
[2022-09-18] MEDS ORDERED: fentaNYL INJ 100 MCG/2 ML AMP IVP ONE (08:30)
[2022-09-18] MEDS ORDERED: LIDOCAINE 1% INJ 30 ML (XYLOCAINE) VIAL INJ ONE (08:30)
[2022-09-18] MEDS ORDERED: MIDAZOLAM 2 MG/2 ML (VERSED) VIAL IVP ONE (08:30)
[2022-09-18] MEDS ORDERED: MIDAZOLAM 2 MG/2 ML (VERSED) VIAL ONE (11:25)
[2022-09-18] MEDS ORDERED: fentaNYL INJ 100 MCG/2 ML AMP ONE (11:25)
[2022-09-18] MEDS ORDERED: LIDOCAINE 1% INJ 30 ML (XYLOCAINE) VIAL ONE (11:25)
[2022-09-18] MEDS ORDERED: NS IV 1000 ML 1,000 ML IV STA (11:59)
--- NOTE | 2022-09-18 13:34 | Diagnostic Imaging Report ---
INDICATION: Right lung mass. Patient presents for CT-guided biopsy. TECHNIQUE: All CT scans use one or more of the following dose optimizing techniques: automated exposure control, MA and/or KvP adjustment based on patient size and exam type or iterative reconstruction. DETAILS OF THE PROCEDURE: The patient was brought to the CT suite and placed on the table in the left side down decubitus position. Axial imaging through the chest was performed to evaluate for an appropriate entry site. The procedure was performed utilizing conscious sedation with Radiology nursing and constant patient monitoring. The patient was given a total of 50 mcg of fentanyl intravenously and 1 mg of Versed intravenously. Total procedure time was approximately 13 minutes. DETAILS OF THE PROCEDURE: The right chest was prepped and draped in the usual sterile fashion. A small amount of 1% lidocaine was utilized for local anesthesia. An 18-gauge coaxial Temno needle was advanced from a left paramidline posterior approach and advanced to the margin of the mass in the posterior right lower lobe. Four core biopsies were obtained. A blood patch was injected during needle removal. Followup imaging does show a small right-sided pneumothorax, less than 10%. The patient tolerated the procedure well and left the Department in stable condition. IMPRESSION: Successful CT-guided biopsy of the right lower lobe lung mass utilizing conscious sedation. Pathology results are currently pending. The patient does have a very small pneumothorax post procedure. A followup chest radiograph in 2 hours will be performed to assess stability. Dictated by: Dictated on workstation # [id number]
--- NOTE | 2022-09-18 14:38 | Pre-Op Note & Conscious Sedat ---
Pre-Operative Progress Note Date of Available H&P: Sep 18, 2022 Date H&P Reviewed: Sep 18, 2022 Time H&P Reviewed: 12:00 Pre-Op Diagnosis: lung mass Moderate Sedation PreProcedure Time 12:00 ASA Score 2 Airway Lungs Heart ASA score ASA 1: a normal healthy patient ASA 2: a patient with a mild systemic disease (mid diabetes, controlled hypertension, obesity ASA 3: a patient with a severe systemic disease that limits activity (angina, COPD, prior Myocardial infarction) ASA 4: a patient with an incapacitating disease that is a constant threat to life (CHF, renal failure) ASA 5: a moribund patient not expected to survive 24 hrs. (ruptured aneurysm) ASA 6: a declared brain- patient whose organs are being harvested. For emergent operations, add the letter E after the classification Mallampati Classification Grade 2 Sedation Plan Analgesia, Amnesia, Plan communicated to team members, Discussed options with patient/fam, Discussed risks with patient/fam The patient is an appropriate candidate to undergo the planned procedure, sedation, and anesthesia. The patient immediately re-assessed prior to indication. BOB BALTAZAR MD Sep 18, 2022 14:38
--- NOTE | 2022-09-18 15:15 | Diagnostic Imaging Report ---
INDICATION: Status post right lung biopsy. TIME OF EXAM: 2:29 p.m. FINDINGS: An expiratory portable radiograph of the chest shows a very small right apical pneumothorax, less than 10%. There are some mild central congestive changes and mild bibasilar atelectasis. IMPRESSION: Small right apical pneumothorax, status post right lung biopsy. Dictated by: Dictated on workstation # [id number]
[2022-09-18] MEDS: amLODIPine 10 MG (NORVASC) TAB PO SCH (16:05)
[2022-09-18] MEDS: LORATADINE (CLARITIN) 10 MG TAB PO SCH (16:05)
[2022-09-18] MEDS: PROPRANOLOL ER 80 MG CAP (INDERAL LA) PO SCH (16:05)
[2022-09-18] MEDS: KCL 20 MEQ TAB (K-DUR) PO SCH ×2 (16:05→21:45)
[2022-09-18] MEDS: ESTRADIOL 1 MG TAB (ESTRACE) PO SCH (16:05)
[2022-09-18] MEDS: AtorvaSTATin TABLET 10 MG TABLET PO SCH (21:45)
[2022-09-19 04:00] VITALS: BP 125/61
[2022-09-19 05:41] LABS: BASOPHILS % (AUTO) 0 % (0-10); EOSINOPHILS # (AUTO) 0.2 10^3/uL (0.0-0.3); EOSINOPHILS % (AUTO) 4 % (0-10); HEMATOCRIT 34 % (35-52); HEMOGLOBIN 11.6 g/dL (11.5-16.0); LYMPHOCYTES # (AUTO) 1.1 10^3/uL (1.0-4.0); LYMPHOCYTES % (AUTO) 17 % (12-44); MEAN CORPUSCULAR HEMOGLOBIN 31 pg (25-34); MEAN CORPUSCULAR HGB CONC 34 g/dL (32-36); MEAN CORPUSCULAR VOLUME 92 fL (80-99); MEAN PLATELET VOLUME 11.2 fL (9.0-12.2); MONOCYTES # (AUTO) 0.4 10^3/uL (0.0-1.0); MONOCYTES % (AUTO) 7 % (0-12); NEUTROPHILS # (AUTO) 4.5 10^3/uL (1.8-7.8); NEUTROPHILS % (AUTO) 72 % (42-75); PLATELET COUNT 105 10^3/uL (130-400); WHITE BLOOD COUNT 6.2 10^3/uL (4.3-11.0)
[2022-09-19 05:49] LABS: ALBUMIN 3.2 GM/DL (3.2-4.5)
[2022-09-19 05:50] LABS: POTASSIUM 4.2 MMOL/L (3.6-5.0)
[2022-09-19 05:51] LABS: CALCIUM 8.4 MG/DL (8.5-10.1)
[2022-09-19 05:52] LABS: TOTAL PROTEIN 6.4 GM/DL (6.4-8.2)
[2022-09-19 05:54] LABS: BILIRUBIN,TOTAL 0.4 MG/DL (0.1-1.0)
[2022-09-19 05:56] LABS: CREATININE SERUM 0.65 MG/DL (0.60-1.30)
[2022-09-19] MEDS ORDERED: RT-LEVALBUTEROL (XOPENEX) 1.25 MG/3 ML NEB NON-FORMULARY INH SCH (07:00)
[2022-09-19 07:34] VITALS: BP 129/61
[2022-09-19] MEDS: RT-LEVALBUTEROL (XOPENEX) 1.25 MG/3 ML NEB NON-FORMULARY INH SCH ×3 (07:34→22:42)
--- NOTE | 2022-09-19 08:36 | Diagnostic Imaging Report ---
INDICATION: Pneumothorax. Comparison is made with prior exam of 09/14/2022 FINDINGS: The heart size is normal. There is some venous congestion. There is atelectasis and/or pneumonitis in right midlung. There is no pleural effusion or pneumothorax. Mediastinum is unremarkable. IMPRESSION: Atelectasis and/or pneumonitis in right midlung with some central pulmonary venous congestion. Dictated by: Dictated on workstation # [id number]
[2022-09-19] MEDS: PROPRANOLOL ER 80 MG CAP (INDERAL LA) PO SCH (09:06)
[2022-09-19] MEDS: ESTRADIOL 1 MG TAB (ESTRACE) PO SCH (09:06)
[2022-09-19] MEDS: LORATADINE (CLARITIN) 10 MG TAB PO SCH (09:06)
[2022-09-19] MEDS: amLODIPine 10 MG (NORVASC) TAB PO SCH (09:06)
[2022-09-19] MEDS: KCL 20 MEQ TAB (K-DUR) PO SCH ×2 (09:06→20:51)
[2022-09-19 11:20] VITALS: BP 130/62
[2022-09-19] MEDS ORDERED: ALBU8.5H6 INH (12:17)
--- NOTE | 2022-09-19 12:18 | Discharge Summary ---
Discharge Summary Hospital Course Was the Problem List Reviewed?: Yes Problems/Dx: (1) Lung mass (2) Acute respiratory failure with hypoxia Hospital Course Date of Admission: Sep 14, 2022 at 11:35 Admission Diagnosis : Family Physician/Provider: Ashley/[facility] Date of Discharge: 09/19/22 Discharge Diagnosis: [ ] Hospital Course: Standard course after she was admitted for acute resp failure following COVID but lung mass noted so biopsy initiated CT guided type and ultimately she was deemed stable for DC on O2 and DC delayed by 1 day due to transportation. Labs and Pending Lab Test: Laboratory Tests 09/19/22 05:24: White Blood Count 6.2, Red Blood Count 3.72L, Hemoglobin 11.6, Hematocrit 34L, Mean Corpuscular Volume 92, Mean Corpuscular Hemoglobin 31, Mean Corpuscular Hemoglobin Concent 34, Red Cell Distribution Width 13.5, Platelet Count 105L, Mean Platelet Volume 11.2, Immature Granulocyte % (Auto) 0, Neutrophils (%) (Auto) 72, Lymphocytes (%) (Auto) 17, Monocytes (%) (Auto) 7, Eosinophils (%) (Auto) 4, Basophils (%) (Auto) 0, Neutrophils # (Auto) 4.5, Lymphocytes # (Auto) 1.1, Monocytes # (Auto) 0.4, Eosinophils # (Auto) 0.2, Basophils # (Auto) 0.0, Immature Granulocyte # (Auto) 0.0, Sodium Level 137, Potassium Level 4.2, Chloride Level 106, Carbon Dioxide Level 20L, Anion Gap 11, Blood Urea Nitrogen 11, Creatinine 0.65, Estimat Glomerular Filtration Rate 89, BUN/Creatinine Ratio 17, Glucose Level 112H, Calcium Level 8.4L, Corrected Calcium 9.0, Total Bilirubin 0.4, Aspartate Amino Transf (AST/SGOT) 13, Alanine Aminotransferase (ALT/SGPT) 13, Alkaline Phosphatase 42, Total Protein 6.4, Albumin 3.2 Microbiology 09/14/22 C. difficile GDH Antigen & Toxins - Final, Complete 09/14/22 Gram Stain - Final, Complete 09/14/22 Sputum Culture - Final, Complete YEAST Usual upper respiratory pilar 09/14/22 Blood Culture - Preliminary, Resulted No growth Home Meds Active Ventolin Hfa (Albuterol Sulfate) 90 Mcg Hfa.aer.ad 2 Puff INH Q4H PRN 1 PUFF = 90 MCG Reported Mili Allergy (Fexofenadine HCl) 180 Mg Tablet 180 Mg PO DAILY Amlodipine Besylate 10 Mg Tablet 10 Mg PO DAILY Citalopram HBr (Citalopram Hydrobromide) 10 Mg Tablet 10 Mg PO DAILY Simvastatin 20 Mg Tablet 20 Mg PO HS Nabumetone 500 Mg Tablet 500 Mg PO BID Propranolol HCl ER (Propranolol HCl) 80 Mg Cap.sa.24h 80 Mg PO DAILY Estradiol Tablet (Estradiol) 2 Mg Tablet 2 Mg PO DAILY Assessment/Pt Instructions PCP 1 week for biopsy results Discharge Planning: <30 minutes discharge planning Discharge Physical Examination Vital Signs Vital Signs Date Time Temp Pulse Resp B/P (MAP) Pulse Ox O2 Delivery O2 Flow Rate FiO2 09/19/22 11:20 36.6 61 18 130/62 (84) 95 Nasal Cannula 7.00 General Appearance: No Apparent Distress, WD/WN, Chronically ill Respiratory: Lungs Clear, Normal Breath Sounds, Decreased Breath Sounds Cardiovascular: Regular Rate, Rhythm Neurologic/Psychiatric: Alert, Oriented x3, No Motor/Sensory Deficits, Normal Mood/Affect Allergies: Coded Allergies: caffeine (Verified Allergy, Unknown, 09/14/22) ergotamine (Verified Allergy, Unknown, 09/14/22) albuterol (Verified Adverse Reaction, Mild, headache, 09/14/22) ipratropium (Verified Adverse Reaction, Mild, headache, 09/14/22) Discharge Summary Date of Admission Sep 14, 2022 at 11:35 Date of Discharge Discharge Date: Sep 19, 2022 Admission Diagnosis 1. While the patient was admitted with concerns for pneumonia with extreme weakness and diarrhea a thick walled cavitary mass with left hilar adenopathy and the smoker is far more likely to be lung cancer specifically squamous cell. I did obtain a procalcitonin level if this is normal I will discontinue antibiotics as it is only likely to exacerbate her diarrhea for which she is C. difficile negative. I did discuss my concerns about underlying lung cancer and the need for tissue. We discussed that radiology would be consulted in the morning and the issue here is how safest to get tissue if the radiologist feels that this can be done here via skinny needle then would proceed if not discuss would require transfer likely to [place] to see a automotive internet sales consultant for bronchoscopy and endobronchial biopsy. 2. Recent COVID infection less than a week out suspect diarrhea may be related to this. 3. Mild hyponatremia likely due to diarrhea cannot rule out paraneoplastic process from lung cancer although probably a little less likely as hyponatremia is only mild continue saline IV. Discharge Diagnosis Assessment: Acute hypoxic respiratory failure COVID 8 days ago Smoker HTN HLP Lung mass Diarrhea improved Plan: CT guided biopsy today Monitor closely O2 LEIGH ANN WALTERS DO Sep 19, 2022 12:18
--- NOTE | 2022-09-19 12:24 | Discharge Summary ---
Discharge Summary Hospital Course Hospital Course Date of Admission: Sep 14, 2022 at 11:35 Admission Diagnosis : Family Physician/Provider: [place] Date of Discharge: 09/19/22 Discharge Diagnosis: [ ] Hospital Course: [ ] Labs and Pending Lab Test: Laboratory Tests 09/19/22 05:24: White Blood Count 6.2, Red Blood Count 3.72L, Hemoglobin 11.6, Hematocrit 34L, Mean Corpuscular Volume 92, Mean Corpuscular Hemoglobin 31, Mean Corpuscular Hemoglobin Concent 34, Red Cell Distribution Width 13.5, Platelet Count 105L, Mean Platelet Volume 11.2, Immature Granulocyte % (Auto) 0, Neutrophils (%) (Auto) 72, Lymphocytes (%) (Auto) 17, Monocytes (%) (Auto) 7, Eosinophils (%) (Auto) 4, Basophils (%) (Auto) 0, Neutrophils # (Auto) 4.5, Lymphocytes # (Auto) 1.1, Monocytes # (Auto) 0.4, Eosinophils # (Auto) 0.2, Basophils # (Auto) 0.0, Immature Granulocyte # (Auto) 0.0, Sodium Level 137, Potassium Level 4.2, Chloride Level 106, Carbon Dioxide Level 20L, Anion Gap 11, Blood Urea Nitrogen 11, Creatinine 0.65, Estimat Glomerular Filtration Rate 89, BUN/Creatinine Ratio 17, Glucose Level 112H, Calcium Level 8.4L, Corrected Calcium 9.0, Total Bilirubin 0.4, Aspartate Amino Transf (AST/SGOT) 13, Alanine Aminotransferase (ALT/SGPT) 13, Alkaline Phosphatase 42, Total Protein 6.4, Albumin 3.2 Microbiology 09/14/22 C. difficile GDH Antigen & Toxins - Final, Complete 09/14/22 Gram Stain - Final, Complete 09/14/22 Sputum Culture - Final, Complete YEAST Usual upper respiratory pilar 09/14/22 Blood Culture - Preliminary, Resulted No growth Home Meds Active Ventolin Hfa (Albuterol Sulfate) 90 Mcg Hfa.aer.ad 2 Puff INH Q4H PRN 1 PUFF = 90 MCG Reported Mili Allergy (Fexofenadine HCl) 180 Mg Tablet 180 Mg PO DAILY Amlodipine Besylate 10 Mg Tablet 10 Mg PO DAILY Citalopram HBr (Citalopram Hydrobromide) 10 Mg Tablet 10 Mg PO DAILY Simvastatin 20 Mg Tablet 20 Mg PO HS Nabumetone 500 Mg Tablet 500 Mg PO BID Propranolol HCl ER (Propranolol HCl) 80 Mg Cap.sa.24h 80 Mg PO DAILY Estradiol Tablet (Estradiol) 2 Mg Tablet 2 Mg PO DAILY Discharge Physical Examination Vital Signs Vital Signs Date Time Temp Pulse Resp B/P (MAP) Pulse Ox O2 Delivery O2 Flow Rate FiO2 09/19/22 11:20 36.6 61 18 130/62 (84) 95 Nasal Cannula 7.00 Allergies: Coded Allergies: caffeine (Verified Allergy, Unknown, 09/14/22) ergotamine (Verified Allergy, Unknown, 09/14/22) albuterol (Verified Adverse Reaction, Mild, headache, 09/14/22) ipratropium (Verified Adverse Reaction, Mild, headache, 09/14/22) Discharge Summary Date of Admission Sep 14, 2022 at 11:35 Date of Discharge Discharge Date: Sep 19, 2022 Admission Diagnosis 1. While the patient was admitted with concerns for pneumonia with extreme weakness and diarrhea a thick walled cavitary mass with left hilar adenopathy and the smoker is far more likely to be lung cancer specifically squamous cell. I did obtain a procalcitonin level if this is normal I will discontinue antibiotics as it is only likely to exacerbate her diarrhea for which she is C. difficile negative. I did discuss my concerns about underlying lung cancer and the need for tissue. We discussed that radiology would be consulted in the morning and the issue here is how safest to get tissue if the radiologist feels that this can be done here via skinny needle then would proceed if not discuss would require transfer likely to [place] to see a eye care professional for bronchoscopy and endobronchial biopsy. 2. Recent COVID infection less than a week out suspect diarrhea may be related to this. 3. Mild hyponatremia likely due to diarrhea cannot rule out paraneoplastic process from lung cancer although probably a little less likely as hyponatremia is only mild continue saline IV. Discharge Diagnosis Assessment: Acute hypoxic respiratory failure COVID 8 days ago Smoker HTN HLP Lung mass Diarrhea improved Plan: CT guided biopsy today Monitor closely O2 LEIGH ANN WALTERS DO Sep 19, 2022 12:24
[2022-09-19 15:42] VITALS: BP 124/59
[2022-09-19 20:00] VITALS: BP 119/59
[2022-09-19] MEDS: AtorvaSTATin TABLET 10 MG TABLET PO SCH (20:51)
[2022-09-20 00:32] VITALS: BP 133/62
[2022-09-20 04:24] VITALS: BP 118/62
[2022-09-20 05:58] LABS: WHITE BLOOD COUNT 6.9 10^3/uL (4.3-11.0)
[2022-09-20 06:00] LABS: BASOPHILS % (AUTO) 0 % (0-10); EOSINOPHILS # (AUTO) 0.4 10^3/uL (0.0-0.3); EOSINOPHILS % (AUTO) 5 % (0-10); HEMATOCRIT 35 % (35-52); HEMOGLOBIN 11.7 g/dL (11.5-16.0); LYMPHOCYTES # (AUTO) 1.3 10^3/uL (1.0-4.0); LYMPHOCYTES % (AUTO) 18 % (12-44); MEAN CORPUSCULAR HEMOGLOBIN 31 pg (25-34); MEAN CORPUSCULAR HGB CONC 33 g/dL (32-36); MEAN CORPUSCULAR VOLUME 93 fL (80-99); MEAN PLATELET VOLUME 10.6 fL (9.0-12.2); MONOCYTES # (AUTO) 0.6 10^3/uL (0.0-1.0); MONOCYTES % (AUTO) 8 % (0-12); NEUTROPHILS # (AUTO) 4.7 10^3/uL (1.8-7.8); NEUTROPHILS % (AUTO) 68 % (42-75); PLATELET COUNT 132 10^3/uL (130-400)
[2022-09-20 06:12] LABS: ALBUMIN 3.3 GM/DL (3.2-4.5); POTASSIUM 4.5 MMOL/L (3.6-5.0)
[2022-09-20 06:14] LABS: CALCIUM 8.5 MG/DL (8.5-10.1)
[2022-09-20 06:15] LABS: TOTAL PROTEIN 6.7 GM/DL (6.4-8.2)
[2022-09-20 06:17] LABS: BILIRUBIN,TOTAL 0.4 MG/DL (0.1-1.0)
[2022-09-20 06:18] LABS: CREATININE SERUM 0.66 MG/DL (0.60-1.30)
--- NOTE | 2022-09-20 06:19 | Discharge Summary ---
Discharge Summary Hospital Course Was the Problem List Reviewed?: Yes Problems/Dx: (1) Lung mass (2) Acute respiratory failure with hypoxia Hospital Course Date of Admission: Sep 14, 2022 at 11:35 Admission Diagnosis : Family Physician/Provider: [place] Date of Discharge: 09/20/22 Discharge Diagnosis: [ ] Hospital Course: Standard course after she was admitted for acute resp failure following COVID but lung mass noted so biopsy initiated CT guided type and ultimately she was deemed stable for DC on O2 and DC delayed by 1 day due to transportation. Labs and Pending Lab Test: Laboratory Tests 09/20/22 05:50: White Blood Count 6.9, Red Blood Count 3.79L, Hemoglobin 11.7, Hematocrit 35, Mean Corpuscular Volume 93, Mean Corpuscular Hemoglobin 31, Mean Corpuscular Hemoglobin Concent 33, Red Cell Distribution Width 13.5, Platelet Count 132, Mean Platelet Volume 10.6, Immature Granulocyte % (Auto) 0, Neutrophils (%) (Auto) 68, Lymphocytes (%) (Auto) 18, Monocytes (%) (Auto) 8, Eosinophils (%) (Auto) 5, Basophils (%) (Auto) 0, Neutrophils # (Auto) 4.7, Lymphocytes # (Auto) 1.3, Monocytes # (Auto) 0.6, Eosinophils # (Auto) 0.4H, Basophils # (Auto) 0.0, Immature Granulocyte # (Auto) 0.0, Percent Immature Platelet Fraction 5.7, Sodium Level 136, Potassium Level 4.5, Chloride Level 106, Carbon Dioxide Level 19L, Anion Gap 11, Blood Urea Nitrogen [Pending], Creatinine 0.66, Estimat Glomerular Filtration Rate 89, BUN/Creatinine Ratio [Pending], Glucose Level 111H, Calcium Level 8.5, Corrected Calcium 9.1, Total Bilirubin 0.4, Aspartate Amino Transf (AST/SGOT) [Pending], Alanine Aminotransferase (ALT/SGPT) [Pending], Alkaline Phosphatase 45, Total Protein 6.7, Albumin 3.3 Microbiology 09/14/22 C. difficile GDH Antigen & Toxins - Final, Complete 09/14/22 Gram Stain - Final, Complete 09/14/22 Sputum Culture - Final, Complete YEAST Usual upper respiratory pilar 09/14/22 Blood Culture - Final, Complete No growth Home Meds Active Ventolin Hfa (Albuterol Sulfate) 90 Mcg Hfa.aer.ad 2 Puff INH Q4H PRN 1 PUFF = 90 MCG Reported Mili Allergy (Fexofenadine HCl) 180 Mg Tablet 180 Mg PO DAILY Amlodipine Besylate 10 Mg Tablet 10 Mg PO DAILY Citalopram HBr (Citalopram Hydrobromide) 10 Mg Tablet 10 Mg PO DAILY Simvastatin 20 Mg Tablet 20 Mg PO HS Nabumetone 500 Mg Tablet 500 Mg PO BID Propranolol HCl ER (Propranolol HCl) 80 Mg Cap.sa.24h 80 Mg PO DAILY Estradiol Tablet (Estradiol) 2 Mg Tablet 2 Mg PO DAILY Assessment/Pt Instructions PCP 1 week for bx results Discharge Planning: <30 minutes discharge planning Discharge Physical Examination Vital Signs Vital Signs Date Time Temp Pulse Resp B/P (MAP) Pulse Ox O2 Delivery O2 Flow Rate FiO2 09/20/22 04:24 36.4 62 20 118/62 (80) 90 Nasal Cannula 5.00 General Appearance: No Apparent Distress, WD/WN, Chronically ill Respiratory: Lungs Clear, Normal Breath Sounds Neurologic/Psychiatric: Alert, Oriented x3, No Motor/Sensory Deficits, Normal Mood/Affect Allergies: Coded Allergies: caffeine (Verified Allergy, Unknown, 09/14/22) ergotamine (Verified Allergy, Unknown, 09/14/22) albuterol (Verified Adverse Reaction, Mild, headache, 09/14/22) ipratropium (Verified Adverse Reaction, Mild, headache, 09/14/22) Discharge Summary Date of Admission Sep 14, 2022 at 11:35 Date of Discharge Discharge Date: Sep 19, 2022 Admission Diagnosis 1. While the patient was admitted with concerns for pneumonia with extreme weakness and diarrhea a thick walled cavitary mass with left hilar adenopathy and the smoker is far more likely to be lung cancer specifically squamous cell. I did obtain a procalcitonin level if this is normal I will discontinue antibiotics as it is only likely to exacerbate her diarrhea for which she is C. difficile negative. I did discuss my concerns about underlying lung cancer and the need for tissue. We discussed that radiology would be consulted in the morning and the issue here is how safest to get tissue if the radiologist feels that this can be done here via skinny needle then would proceed if not discuss would require transfer likely to [place] to see a direct casting operator for bronchoscopy and endobronchial biopsy. 2. Recent COVID infection less than a week out suspect diarrhea may be related to this. 3. Mild hyponatremia likely due to diarrhea cannot rule out paraneoplastic process from lung cancer although probably a little less likely as hyponatremia is only mild continue saline IV. Discharge Diagnosis Assessment: Acute hypoxic respiratory failure COVID 8 days ago Smoker HTN HLP Lung mass Diarrhea improved Plan: CT guided biopsy today Monitor closely O2 (1) Lung mass (2) Acute respiratory failure with hypoxia LEIGH ANN WALTERS DO Sep 20, 2022 06:19
[2022-09-20 07:41] VITALS: BP 127/60
[2022-09-20] MEDS: ESTRADIOL 1 MG TAB (ESTRACE) PO SCH (09:01)
[2022-09-20] MEDS: LORATADINE (CLARITIN) 10 MG TAB PO SCH (09:01)
[2022-09-20] MEDS: KCL 20 MEQ TAB (K-DUR) PO SCH (09:01)
[2022-09-20] MEDS: amLODIPine 10 MG (NORVASC) TAB PO SCH (09:01)
[2022-09-20] MEDS: PROPRANOLOL ER 80 MG CAP (INDERAL LA) PO SCH (09:01)
[2022-09-20] MEDS: RT-LEVALBUTEROL (XOPENEX) 1.25 MG/3 ML NEB NON-FORMULARY INH SCH (09:04)
[2022-09-20 11:14] VITALS: BP 130/63
[2022-09-20 11:50] VITALS: BP 130/63
== END 2022-09-20 11:50 | disposition home or self-care (01) | DRG 189 ==
LOC: ER FS 07:04 → EDUNIT# 07:04 → 4TH 11:35
PROVIDERS: ADMIT Internal Medicine; ATTEND Internal Medicine
PROC: 0BBF3ZX Excision of Right Lower Lung Lobe, Percutaneous Approach, Diagnostic (ICD-10-PCS; principal; 2022-09-18)
PROC: 5A0935A Assistance with Respiratory Ventilation, Less than 24 Consecutive Hours, High Flow/Velocity Cannula (ICD-10-PCS; 2022-09-18)
DX: J96.01 Acute respiratory failure with hypoxia (principal); E87.1 Hypo-osmolality and hyponatremia; U09.9 Post COVID-19 condition, unspecified; F17.210 Nicotine dependence, cigarettes, uncomplicated; I10 Essential (primary) hypertension; E78.5 Hyperlipidemia, unspecified; R91.8 Other nonspecific abnormal finding of lung field; R19.7 Diarrhea, unspecified; E78.00 Pure hypercholesterolemia, unspecified; M19.90 Unspecified osteoarthritis, unspecified site; F32.A Depression, unspecified; G43.909 Migraine, unspecified, not intractable, without status migrainosus
CPT/HCPCS: 36415; 71045; 71046; 71275; 77012; 80053; 82947; 83605; 83880; 84145; 84484; 85025; 85610; 85730; 87040; 87070; 87205; 87324; 87449; 88305; 88344; 93306; 94640; 94760; 94761; 96361; 96365; 96367; 96368; 96375; 99156

== ENCOUNTER 2022-10-22 05:31 | Outpatient (CLI) | payer MEDICARE ==
[~2022-10-22] VITALS: Ht 160 cm; Wt 67.1 kg
[~2022-10-22 05:31] MED LIST changes: +ALBU8.5H6 INH
[2022-10-22] MEDS ORDERED: LOSA25TA41 PO ×2 (14:15)
== END 2022-10-22 14:36 | disposition home or self-care (01) ==
LOC: PREOP 05:31
PROVIDERS: ATTEND Surgery
DX: Z01.818 Encounter for other preprocedural examination (principal)

== ENCOUNTER 2022-10-22 08:27 | Outpatient (RCR) | payer MEDICARE ==
[2022-10-22] MEDS ORDERED: LOSA25TA41 PO (14:15)
== END 2022-10-27 | disposition home or self-care (01) ==
LOC: ONC 08:27
PROVIDERS: ATTEND Radiology Radiation Oncology
DX: Z51.11 Encounter for antineoplastic chemotherapy (principal); C34.90 Malignant neoplasm of unspecified part of unspecified bronchus or lung; I87.2 Venous insufficiency (chronic) (peripheral)
CPT/HCPCS: 77290; 77334; 99205

== ENCOUNTER 2022-10-23 10:16 | Day surgery (SDC) | payer MEDICARE ==
[~2022-10-23] VITALS: Ht 160 cm; Wt 67.1 kg
[2022-10-23] VITALS (7 sets, daily range): BP systolic 136–177; BP diastolic 57–89
[~2022-10-23 10:16] MED LIST changes: +LACTATED RINGERS 1,000 ML IV PRN; +LOSA25TA41 PO
[2022-10-23] MEDS ORDERED: ceFAZolin INJECTION 2,000 MG in NS (IVPB) 50 ML IV ONE (10:45)
--- NOTE | 2022-10-23 10:48 | Progress Note-Pre Operative ---
Pre-Operative Progress Note Date H&P Reviewed: Oct 23, 2022 Time H&P Reviewed: 10:48 History & Physical: H&P Reviewed, Patient Examed, No changes noted Pre-Operative Diagnosis: lung cancer MARIO BROWN DO Oct 23, 2022 10:48
[2022-10-23] MEDS ORDERED: LIDOCAINE/EPI 1%-1:100,000 (XYLOCAINE) 20ML ONE (10:54)
[2022-10-23] MEDS ORDERED: HEParin (CENTRAL IV FLUSH) 500 UNIT/5 ML SYR ONE (10:54)
[2022-10-23] MEDS ORDERED: 0.9% SODIUM CHLORIDE PF INJ 20 ML VIAL ONE (10:54)
[2022-10-23] MEDS ORDERED: PROPRANOLOL 20 MG (INDERAL) TABLET PO ONE (11:15)
[2022-10-23] MEDS ORDERED: PROPOFOL INJECTION 50 ML IV ONE (11:28)
[2022-10-23] MEDS ORDERED: 0.9% SODIUM CHLORIDE PF INJ 20 ML VIAL IJ ONE (11:49)
[2022-10-23] MEDS ORDERED: LIDOCAINE/EPI 1%-1:100,000 (XYLOCAINE) 20ML INJ ONE (11:50)
[2022-10-23] MEDS ORDERED: HEParin (CENTRAL IV FLUSH) 500 UNIT/5 ML SYR INJ ONE (11:51)
--- NOTE | 2022-10-23 12:24 | Anesthesia-General Post-Op ---
MAC Patient Condition Mental Status/LOC: Same as Preop Cardiovascular: Satisfactory Nausea/Vomiting: Absent Respiratory: Satisfactory Pain: Controlled Complications: Absent Post Op Complications Complications None Follow Up Care/Instructions Patient Instructions None needed. Anesthesiology Discharge Order Discharge Order Patient is doing well, no complaints, stable vital signs, no apparent adverse anesthesia problems. No complications reported per nursing. CHARLOTTE WINKLER CRNA Oct 23, 2022 12:24
[2022-10-23] MEDS ORDERED: ONDANSETRON 4 MG/2 ML (SDV) Z0FRAN IVP PRN (12:30)
[2022-10-23] MEDS ORDERED: HYDROmorphone 2 MG/ML VIAL (DILAUDID) IV ONE (12:30)
--- NOTE | 2022-10-23 12:52 | Diagnostic Imaging Report ---
INDICATION: Postop Port-A-Cath placement Frontal chest obtained at 12:21 p.m. compared to 09/19/2022 Heart is mildly enlarged. The central vascular congestion with some right perihilar infiltrate. There is no pneumothorax or pleural fluid. There is a new left-sided Port-A-Cath, with catheter in the left internal jugular vein and catheter tip overlying distal SVC. IMPRESSION: New left-sided Port-A-Cath is in place as above with no pneumothorax or pleural fluid following device placement. There is central vascular congestion with patchy right perihilar infiltrate. Dictated by: Dictated on workstation # [id number]
--- NOTE | 2022-10-23 14:04 | Progress Note-Post Operative ---
Post-Operative Progess Note Surgeon (s)/Decaler (s) Surgeon MARIO BROWN DO Decaler: NA Pre-Operative Diagnosis lung cancer Post-Operative Diagnosis SAME Procedure & Operative Findings Date of Procedure 10/23/22 Procedure Performed/Findings PROCEDURE: Left internal jugular port placement using ultrasound guidance. COMPLICATIONS: None. INDICATIONS: The patient is a 81 year old female with lung cancer. Patient understands the risks and benefits of port placement and wished to proceed with the procedure. Consent was signed on the chart. PROCEDURE: The patient was taken to the operating suite, was prepped and draped in the sterile fashion. A surgical pause was performed. Ultrasound was used to locate the internal jugular vein. Once located anesthetic was infiltrated above it. Using micro-access kit, the right internal vein was accessed. Dark nonpulsatile blood was withdrawn. The wire was inserted. Fluoroscopy assured proper placement. The needle was removed. The micro-access dilator was advanced over the wire and the wire was removed. The regular wire was inserted and fluoroscopy assured proper placement. The wire was then secured. Local anesthetic was used to anesthetize from the neck for tunneling down to the right chest and for pocket creation. A 15 blade scalpel was used to make an incision over the left chest. Cautery was used to dissect down to the pectoral fascia. A pocket was created with blunt dissection. The dilator sheath was then advanced over the wire under fluoroscopy and the dilator and wire were removed. The [place]ong catheter was inserted through the sheath and the sheath was then removed. The [place] wire was removed. The catheter was then tunneled to the right chest pocket. Fluoroscopy was used to cut to length and this was then attached to the port which was then placed within the pocket. The port was then accessed without difficulty. It was then flushed with saline and then heparin. The subcutaneous tissues were then reapproximated using 3-0 Vicryl. The areas were then washed and dried. Skin Affix was placed over incision. The insertion point of the neck Skin Affix was placed over the incision. The patient tolerated the procedure well without complication and was taken to recovery room in stable condition. Chest x-ray is pending. Anesthesia Type mac c local Estimated Blood Loss Estimated blood loss (mL): minimal Specimens/Packing Specimens Removed MARIO Marinelli DO Oct 23, 2022 14:04
--- NOTE | 2022-10-23 17:55 | Diagnostic Imaging Report ---
INDICATION: Port-A-Cath placement. EXAMINATION: Intraoperative fluoroscopy view obtained during Port-A-Cath placement in surgery. Single view obtained, 268.9 seconds of fluoroscopy time was used. FINDINGS: Intraoperative single view demonstrates a port over the left chest with catheter entering the left internal jugular vein and catheter tip overlying the low SVC. The study is otherwise limited. IMPRESSION: Intraoperative fluoroscopy view obtained during Port-A-Cath placement in surgery. Dictated by: Dictated on workstation # [id number]
== END 2022-10-23 13:55 | disposition home or self-care (01) ==
LOC: SDC 10:16
PROVIDERS: ATTEND Surgery
DX: C34.91 Malignant neoplasm of unspecified part of right bronchus or lung (principal); I87.2 Venous insufficiency (chronic) (peripheral); Z87.891 Personal history of nicotine dependence
CPT/HCPCS: 36561; 71045; 76000; 87081; C1788

== ENCOUNTER 2022-11-26 09:45 | Outpatient (RCR) | payer MEDICARE ==
[~2022-11-26 09:45] MED LIST changes: -LACTATED RINGERS 1,000 ML IV PRN
== END 2022-11-27 | disposition home or self-care (01) ==
LOC: ONC 09:45
PROVIDERS: ATTEND Radiology Radiation Oncology
DX: Z51.0 Encounter for antineoplastic radiation therapy (principal); C34.90 Malignant neoplasm of unspecified part of unspecified bronchus or lung; I87.2 Venous insufficiency (chronic) (peripheral)
CPT/HCPCS: 77280; 77295; 77300; 77334; 77336; 77417; 77470

== ENCOUNTER 2022-12-17 10:41 | Outpatient (RCR) | payer MEDICARE | END 2022-12-27 | disposition home or self-care (01) | LOC: ONC 10:41 | PROVIDERS: ATTEND Radiology Radiation Oncology | DX: Z51.0 Encounter for antineoplastic radiation therapy (principal); C34.90 Malignant neoplasm of unspecified part of unspecified bronchus or lung; I87.2 Venous insufficiency (chronic) (peripheral) | CPT/HCPCS: 77280; 77307; 77334; 77336; 77417 ==